=== PATIENT | female | born 1950 | race Caucasian/White ===

== ENCOUNTER 2018-10-13 09:56 | Outpatient (CLI) | payer MEDICARE, SELFPAY ==
[2018-10-13 13:26] LABS: ALT 32 U/L (12-78); AST 18 U/L (15-37); Albumin 3.7 g/dL (3.4-5.0); Alkaline Phosphatase 84 U/L (46-116); Anion Gap 8.3 mmol/L (3-11); BUN 18 mg/dL (7-18); Bilirubin, Total 0.4 mg/dL (0.2-1.0); CO2 29.7 mmol/L (21.0-32.0); CREATININE 0.87 mg/dL (0.55-1.02); Calcium 9.2 mg/dL (8.5-10.1); Chloride 104 mmol/L (98-107); Cholesterol 171 mg/dL (50-200); Glucose 134 mg/dL (70-100); HDL Cholesterol 57 mg/dL (40-60); Hemoglobin A1C 6.9 % (4.5-6.2); LDL CHOLESTEROL 97 mg/dL (<100); Potassium 4.6 mmol/L (3.5-5.1); Sodium 142 mmol/L (136-145); Total Protein 6.7 g/dL (6.4-8.2); Triglyceride 84 mg/dL (30-150)
== END 2018-10-13 10:16 ==
PROVIDERS: PCP Family Medicine; Visit Provider Family Medicine
CPT/HCPCS: 36415; 80053; 80061; 83721; 83036

== ENCOUNTER 2019-05-13 00:36 | Outpatient (CLI) | payer MEDICARE, SELFPAY ==
--- NOTE | 2019-05-13 07:30 | DI.MAMMO_ITS ---
SYMPTOMS/DIAGNOSIS: SCREENING MAMMOGRAMS: Mammograms were interpreted according to the usual protocol including computer analysis with CAD system, tomosynthesis and C view imaging. Comparison is made with prior examinations. No suspicious masses or microcalcifications are seen. There is no definite evidence of malignancy. IMPRESSION: Negative mammogram. Routine screening is recommended. Category 1, breast density B. MQSA ASSESSMENT OF FINDINGS: Negative. Category 1. Patient will receive a letter notifying them of these results. BI-RADS category B. There are scattered areas of fibroglandular density.
[2019-05-13 09:30] LABS: Hemoglobin A1C 6.5 % (4.5-6.2)
[2019-05-13 09:57] LABS: Iron 55 ug/dL (50-175)
[2019-05-13 10:00] LABS: COMMENT (LAB VIEW ONLY) 28.04 mg/dL; Microalb ug/mg Crea 13.9 ug/mg Cr
[2019-05-13 10:05] LABS: ALT 28 U/L (12-78); AST 13 U/L (15-37); Albumin 3.7 g/dL (3.4-5.0); Alkaline Phosphatase 87 U/L (46-116); Anion Gap 7.3 mmol/L (3-11); BUN 17 mg/dL (7-18); Bilirubin, Total 0.3 mg/dL (0.2-1.0); C-Reactive Protein 0.41 mg/dL (0.0-0.3); CO2 28.7 mmol/L (21.0-32.0); CREATININE 0.82 mg/dL (0.55-1.02); Calcium 9.1 mg/dL (8.5-10.1); Chloride 105 mmol/L (98-107); Glucose 178 mg/dL (70-100); Potassium 4.3 mmol/L (3.5-5.1); Sodium 141 mmol/L (136-145); Total Protein 7.3 g/dL (6.4-8.2); Uric Acid 5.9 mg/dL (2.6-6.0)
[2019-05-13 10:17] LABS: ESR 8 mm/hr (0-30)
[2019-05-13 10:29] LABS: Calculated LDL 115 mg/dL; Cholesterol 188 mg/dL (50-200); Ferritin 46 ng/mL (8-388); HDL Cholesterol 48 mg/dL (40-60); Triglyceride 125 mg/dL (30-150)
[2019-05-14 10:59] LABS: Rheumatoid Factor <8 IU/mL (<12.5)
== END 2019-05-13 00:56 ==
PROVIDERS: PCP Family Medicine; Visit Provider Family Medicine
DX: Z12.31 Encounter for screening mammogram for malignant neoplasm of breast (principal); E11.9 Type 2 diabetes mellitus without complications; M25.50 Pain in unspecified joint; C43.9 Malignant melanoma of skin, unspecified; I10 Essential (primary) hypertension; E78.5 Hyperlipidemia, unspecified; F32.9 Major depressive disorder, single episode, unspecified
CPT/HCPCS: 36415; 77063; 77067; 80053; 80061; 83721; 85652; 82043; 82570; 82607; 82728; 83036; 83540; 84550; 86140; 86431

== ENCOUNTER 2019-11-17 08:09 | Outpatient (CLI) | payer MEDICARE, SELFPAY ==
[2019-11-17 14:32] LABS: Hemoglobin A1C 6.7 % (3.8-5.6)
[2019-11-17 14:42] LABS: Microalb ug/mg Crea 19.2 ug/mg Cr
[2019-11-17 15:02] LABS: Iron 71 ug/dL (50-170)
[2019-11-17 15:31] LABS: ALT 35 U/L (14-59); AST 22 U/L (15-37); Albumin 4.1 g/dL (3.4-5.0); Alkaline Phosphatase 91 U/L (46-116); Anion Gap 8.5 mmol/L (3-11); BUN 14 mg/dL (7-18); Bilirubin, Total 0.5 mg/dL (0.2-1.0); CO2 27.5 mmol/L (21.0-32.0); CREATININE 0.92 mg/dL (0.55-1.02); Calcium 9.4 mg/dL (8.5-10.1); Calculated LDL 83 mg/dL (<100); Chloride 104 mmol/L (98-107); Cholesterol 164 mg/dL (<200); Ferritin 44 ng/mL (8-252); Glucose 111 mg/dL (74-106); HDL Cholesterol 59 mg/dL (40-60); Potassium 4.5 mmol/L (3.5-5.1); Sodium 140 mmol/L (136-145); Total Protein 7.6 g/dL (6.4-8.2); Triglyceride 110 mg/dL (<150); Vitamin B12 368 pg/mL (193-986)
== END 2019-11-17 08:29 ==
PROVIDERS: PCP Family Medicine; Visit Provider Family Medicine
DX: E11.69 Type 2 diabetes mellitus with other specified complication (principal); D64.9 Anemia, unspecified; G25.81 Restless legs syndrome
CPT/HCPCS: 36415; 80053; 80061; 82043; 82570; 82607; 82728; 83036; 83540

== ENCOUNTER 2020-03-01 01:12 | Outpatient (CLI) | payer MEDICARE, SELFPAY ==
[2020-03-01 14:13] LABS: Abs Immature Grans 0.02 k/cumm (0.0-0.09); Absolute Basophil Count 0.01 k/cumm (0.0-0.2); Absolute Eosinophil Count 0.32 k/cumm (0.0-0.7); Absolute Lymphocyte Count 1.83 k/cumm (1.2-3.4); Absolute Monocyte Count 0.52 k/cumm (0.11-0.7); Absolute Neutrophil Count 4.52 k/cumm (1.2-6.7); Basophils % 0.1; Eosinophils % 4.4; HCT 45.7 % (36.0-46.0); HGB 15.1 g/dL (12.0-15.5); Immature Grans % 0.3 %; Lymphocytes % 25.3; Mean Corpuscular Hemoglobin 31.7 pg (27.0-33.0); Mean Platelet Volume 9.5 fL (8.0-11.0); Monocytes % 7.2; Neutrophils % 62.7; Platelet Count 263 x1000/uL (130-400); RBC 4.76 m/cumm (4.00-5.20); RBC Distribution Width 14.1 % (11.7-14.6); White Blood Cell Count 7.22 k/cumm (4.4-10.8)
[2020-03-01 14:23] LABS: Hemoglobin A1C 6.3 % (3.8-5.6)
[2020-03-01 14:50] LABS: ESR 7 mm/hr (0-30)
[2020-03-01 15:04] LABS: ALT 34 U/L (14-59); AST 25 U/L (15-37); Alkaline Phosphatase 86 U/L (46-116); Anion Gap 6.8 mmol/L (3-11); BUN 9 mg/dL (7-18); Bilirubin, Total 0.5 mg/dL (0.2-1.0); CO2 30.2 mmol/L (21.0-32.0); CREATININE 0.97 mg/dL (0.55-1.02); Calcium 9.5 mg/dL (8.5-10.1); Chloride 103 mmol/L (98-107); Estimated GFR 57.11 (mL/min/1.73m2); Glucose 104 mg/dL (74-106); Potassium 4.4 mmol/L (3.5-5.1); Sodium 140 mmol/L (136-145); TSH 2.25 uIU/mL (0.36-3.74); Total Protein 7.2 g/dL (6.4-8.2)
== END 2020-03-01 01:32 ==
PROVIDERS: PCP Family Medicine; Visit Provider Family Medicine
DX: E11.9 Type 2 diabetes mellitus without complications (principal); R53.83 Other fatigue
CPT/HCPCS: 36415; 80053; 85652; 83036; 84443; 85025

== ENCOUNTER 2020-09-27 04:28 | Outpatient (CLI) | payer MEDICARE, OTHER, SELFPAY ==
[2020-09-27 16:03] LABS: COMMENT (LAB VIEW ONLY) 53.61 mg/dL; Microalb ug/mg Crea 22.4 ug/mg Cr
[2020-09-27 16:07] LABS: Hemoglobin A1C 6.1 % (<5.7)
[2020-09-27 16:50] LABS: ALT 30 U/L (14-59); AST 21 U/L (15-37); Alkaline Phosphatase 75 U/L (46-116); Anion Gap 4.6 mmol/L (3-11); BUN 16 mg/dL (7-18); Bilirubin, Total 0.5 mg/dL (0.2-1.0); CO2 31.4 mmol/L (21.0-32.0); CREATININE 1.02 mg/dL (0.55-1.02); Calcium 9.6 mg/dL (8.5-10.1); Chloride 103 mmol/L (98-107); Estimated GFR 53.89 (mL/min/1.73m2); Glucose 79 mg/dL (74-106); Potassium 4.1 mmol/L (3.5-5.1); Sodium 139 mmol/L (136-145); Total Protein 7.1 g/dL (6.4-8.2)
== END 2020-09-27 04:48 ==
PROVIDERS: PCP Family Medicine; Visit Provider Family Medicine
DX: E11.9 Type 2 diabetes mellitus without complications (principal)
CPT/HCPCS: 36415; 80053; 82043; 82570; 83036

== ENCOUNTER 2021-04-04 00:42 | Outpatient (CLI) | payer MEDICARE, SELFPAY ==
--- NOTE | 2021-04-04 08:15 | DI.MAMMO_ITS ---
Exam(s) MAMMO SCREENING EXAM: MAMMO SCREENING CLINICAL HISTORY: screening,Z12.39 TECHNIQUE: Bilateral full field digital CC and MLO mammographic images were obtained with 3D tomosyn thesis and utilizing computer aided detection (CAD). COMPARISON: Available for comparison. FINDINGS: Masses/Architectural Distortion: None seen. Microcalcifications: No suspicious pleomorphic-type are seen. Skin Thickening/Nipple Retraction: None. IMPRESSION: 1. No significant interval change with no specific features of malignancy noted. 2. Unless there is more urgent need, screening mammography is recommended, as per [employer] guidelines. BI-RADS Category 1 - Negative Breast Density - Category B - Scattered areas of fibroglandular density Breast density category C or D implies that the patient has dense breast tissue. Dense breast tissue is very common and is not abnormal but dense breast tissue can make it harder to find cancer on a ma mmogram. Also, dense breast tissue may increase their breast cancer risk. This information about the result of the mammogram report was provided to the patient to raise their awareness. Use this report when you speak with the patient about their risks for breast cancer, which includes their family hist ory. At that time, you may recommend for more screening tests (Ultrasound or MRI) as they might be us eful based on their risk. A negative radiographic report should not delay biopsy if a dominant or clinically suspicious mass is present. Up to ten percent of cancers are not identified on mammography. A negative report may reinforce clinical impression. Adenosis and dense breasts may obscure an underlying neoplasm. False positive reports average 6 to 10%. Patient will receive a letter notifying them of these results.
== END 2021-04-04 01:02 ==
PROVIDERS: PCP Family Medicine; Visit Provider Family Medicine
DX: Z12.31 Encounter for screening mammogram for malignant neoplasm of breast (principal); R92.8 Other abnormal and inconclusive findings on diagnostic imaging of breast
CPT/HCPCS: 77063; 77067

== ENCOUNTER 2021-04-11 11:55 | Outpatient (REF) | payer MEDICARE, SELFPAY ==
[2021-04-12 14:46] LABS: COVID-19 RT-PCR UVMMC Result Negative (Negative)
== END 2021-04-11 11:56 | disposition home or self-care (01) ==
LOC: LBN 11:55
PROVIDERS: PCP Family Medicine; Visit Provider Family Medicine
DX: Z20.822 Contact with and (suspected) exposure to COVID-19 (principal); J06.9 Acute upper respiratory infection, unspecified
CPT/HCPCS: U0003; U0005

== ENCOUNTER 2021-05-01 07:06 | Inpatient (IN) | payer MEDICARE, SELFPAY ==
[2021-05-01] VITALS (255 sets, daily range): BP systolic 41–132; BP diastolic 25–114; PULSE 79–111; RESP 1–36; TEMP 35.8–37.6; O2SAT 4–100
--- NOTE | 2021-05-01 07:00 | RT.EKG_ITS ---
APPROVED REPORT Exam: Resting ECG Reason for Exam: sob Patient Location: E HR:97 bpm ECG Measurements Heart Rate 97 AXIS CO 135 P 69 QRSd 82 QRS 82 QT 324 T 26 QTc 413 Conclusion Sinus rhythm...normal P axis, V-rate 60- 99 sinus rhythm at 97, normal axis, no STEMI, nondiagnostic EKG
[2021-05-01] MEDS: Normal Saline 1,000 ML 1000 ML IV ×2 (07:37→09:06)
--- NOTE | 2021-05-01 08:05 | ED.GENADUL_ITS ---
Discharge Plan Disposition Condition: Fair Discharge Details Chief Complaint: RespSymp Admit Date/Time: 05/01/21 09:48 Admit Provider: John Buck Attending Provider: John Buck Primary Care Provider: Bharati Cooper ED Provider: Marine Lepe Discharge Instructions Activity:: Activity as Tolerated Equipment/Supplies:: No Equipment Needed Diet:: As Tolerated Discharge Orders Discharge Orders: Discharge Order (Routine); Ordered 05/05/21 Ordered By: Hannah Zamora Discharge Data Discharge Date/Time-TO BE ENTERED AT DEPARTURE: 05/01/21 11:34 Medical Decision Making Jerica Quinteros is a 71 y/o woman with history of sleep apnea chb-tjseynn-kgjrcyvfi diabetes, hyperlipidemia, hypertension, psoriasis on immunosuppressive who presented to emergency department with shortness of breath, lightheadedness. On exam patient appears fatigued, no extremitas. Slight wheeze bilaterally on auscultation. No abdominal tenderness palpation. Mild symmetric lower extremity edema. Initial blood pressure with SBP in the 70s. Patient alert without signs of poor perfusion. Concern for pneumonia, Covid, pulmonary embolism, CHF, sepsis other. Doubt acute coronary syndrome. Bedside ultrasound shows trace pericardial effusion, IVC compressible during respiration. Exam/history at this time is not consistent with acute aortic pathology, meningitis, acute emergent intra-abdominal pathology. EKG is nondiagnostic. Plan for IV placement x2, telemetry, IV fluid hydration, scr eening labs, chest x-ray, UA. Will monitor and reassess. Blood pressure improving with IV fluid, SBP 80s/90s. Labs reviewed, hemoglobin 7.2 without known history of anemia. Lactate 2.9. Cefepime initiated for presumed pulmonary infection rectal exam performed. Hemoccult was positive, there is no gross blood or melena, rectal exam otherwise normal. Chest x-ray shows multiple nodules concerning for metastatic disease. Patient states that she was diagnosed with melanoma on the foot 3 years ago, this was surgically removed, no chemotherapy or radiation at that time. Patient also reports that her mother, father, and older sister were all diagnosed with colon cancer in the past. Plan to continue IV fluid. 1 unit PRBCs ordered. Patient reports that she feels somewhat improved with fluids. No clinical evidence of CHF at this point. Patient discussed with hospitalist who will admit. Awaiting administration of RBCs for MedSurg versus ICU placement. Patient now with blood pressure 101/54. Patient will need CT chest/abdomen/pelvis, possible CT head for further neoplastic disease evaluation. 20 cc of urine obtained on straight cath, creatinine 1.5 which is increased from patient's baseline. Will hold CT scans at this time as no emergent need, awaiting fluid resuscitation and stabilization of blood pressure. Patient not tachycardic, no chest pain, shortness of breath feels improved, blood pressure improving with fluid, no apparent RV strain on bedside ultrasound, doubt segmental pulmonary embolism at this time. Pt to be admitted to ICU for continued borderline BP. No worsening of symptoms. Clinical impression: Anemia, hypertension Disposition: [facility] inpatient Medical Records Medical records reviewed: Yes I reviewed the patient's medical records. Imaging Data Radiologic Study: Attestation: I personally reviewed and interpreted this imaging study as follows: Radiologist's impression: EXAM: XR PORTABLE CHEST AP CLINICAL HISTORY: cough. TECHNIQUE: 2D digital imaging was performed. COMPARISON: No exams were available for comparison FINDINGS: Heart size upper normal. There are multiple noncalcified and non cavitated nodules throughout both lung klein, largest of these being in the right hilum region measuring 5.5 by 4.5 cm. The largest in the opposite-left lung measures approximately 4 x 4 cm. No associated pleural effusions evident. Fixation plate noted on the superior aspect of the left clavicle. No significant osseous lesions identified. IMPRESSION: There are multiple noncalcified non cavitated nodules throughout both lung klein. There are no associated pleural effusions. First consideration is for neoplasm-metastatic disease and correlation with this patient's past medical history is recommended. Other considerations are for infectious/inflammatory. Lab Data Lab results reviewed: Yes I reviewed the patient's lab results. ECG Data Attestation: I personally reviewed and interpreted this ECG (s) as follows: Interpretation: EKG shows sinus rhythm at 97, normal axis, no STEMI, nondiagnostic EKG HPI General Mode of arrival: ambulatory . Date/Time Provider Initiated Documentation: 05/01/21 07:32 . Limitations to Documentation: no limitations . Information obtained by: patient, RN notes reviewed and old records reviewed . HPI Narrative: Jerica Quinteros is a 71-year-old woman with a history of asthma, azv-lwylsyi-edqnzzshw diabetes, hyperlipidemia, hypertension, sleep apnea, psoriasis presenting to the emergency department with chief complaint shortness of breath. Patient reports that over the past 2 weeks she has begun to feel generally unwell. She reports that she has shortness of breath with exertion but not at rest. She has had dry cough over the past 3 weeks as well. She reports diarrhea in the past few days, no bloody, dark, or tarry stool. Patient reports that she has had lightheadedness worse with standing over the past 3 weeks as well. She states that she has had mild pain behind her eyes since that time., Also with blurry vision that has not been no ongoing for 6 weeks or so. Patient reports that she has no new visual changes. She denies any other pain. Denies fever, vomiting, numbness, weakness, rash. She reports that in the past few weeks she has noticed mild swelling her lower legs. Patient states that she has had somewhat decreased p.o. intake over the past few months, but has been drinking plenty of fluids. Per record review, patient was started on apremilast for her psoriasis recently (noted in clinic note 04/19/2021). Related Data Home Medications Medication Instructions Recorded Confirmed aspirin [Aspirin Low-Strength] 1 tab PO DAILY tab 02/10/13 05/01/21 Blood Glucose Test #100 strip 04/13/15 05/01/21 nystatin (bulk) 1 ea MISCELLANEOUS DAILY #60 gm 03/23/16 05/01/21 calcium carb-vit D3-minerals 600 1 tab PO DAILY tab 04/06/19 05/01/21 mg calcium-400 unit tablet fluticasone propionate 50 1 spray NS DAILY PRN #1 gm 04/06/19 05/01/21 mcg/actuation nasal spray,suspension docusate sodium 100 mg capsule 100 mg PO DAILY #90 cap 04/20/19 05/01/21 nystatin 100,000 unit/gram topical 1 applic TP BID PRN #60 gm 04/30/19 05/01/21 powder losartan 100 mg tablet 100 mg PO DAILY #90 tab 11/18/19 05/01/21 albuterol sulfate 90 mcg/actuation 1 - 2 puff IH QID PRN #18 gm 05/04/20 05/01/21 aerosol inhaler ropinirole 1 mg tablet 1 - 2 mg PO HS #90 tab-cap 05/04/20 05/01/21 fluticasone furoate 100 1 inh IH DAILY #30 each 06/24/20 05/01/21 mcg/actuation blister powder for inhalation metformin 1,000 mg tablet 1,000 mg PO DAILY #90 tab-cap 11/18/20 05/01/21 apremilast 30 mg tablet 30 mg PO BID 04/03/21 05/01/21 atorvastatin 80 mg tablet 80 mg PO DAILY #90 tab-cap 04/03/21 05/01/21 escitalopram oxalate 20 mg tablet 40 mg PO DAILY #180 tab 04/03/21 05/01/21 triamcinolone acetonide 0.1 % 1 applic TOPICAL BID 04/03/21 05/01/21 topical cream bupropion HCl 150 mg tablet,12 hr 150 - 300 mg PO DIRECTED #270 04/04/21 05/01/21 sustained-release tab lidocaine HCl 5 ml NEB DIRECTED PRN #0 ml 05/04/21 Previous Rx's Medication Instructions Recorded docusate sodium 100 mg capsule 100 mg PO DAILY #90 cap 04/20/19 nystatin 100,000 unit/gram topical 1 applic TP BID PRN #60 gm 04/30/19 powder losartan 100 mg tablet 100 mg PO DAILY #90 tab 11/18/19 albuterol sulfate 90 mcg/actuation 1 - 2 puff IH QID PRN #18 gm 05/04/20 aerosol inhaler ropinirole 1 mg tablet 1 - 2 mg PO HS #90 tab-cap 05/04/20 fluticasone furoate 100 1 inh IH DAILY #30 each 06/24/20 mcg/actuation blister powder for inhalation metformin 1,000 mg tablet 1,000 mg PO DAILY #90 tab-cap 11/18/20 atorvastatin 80 mg tablet 80 mg PO DAILY #90 tab-cap 04/03/21 escitalopram oxalate 20 mg tablet 40 mg PO DAILY #180 tab 04/03/21 bupropion HCl 150 mg tablet,12 hr 150 - 300 mg PO DIRECTED #270 04/04/21 sustained-release tab lidocaine HCl 5 ml NEB DIRECTED PRN #0 ml 05/04/21 Allergies Allergy/AdvReac Type Severity Reaction Status Date / Time cortisone Allergy Intermediate burning Unverified 05/01/21 07:10 rash ketoconazole Allergy Intermediate SKIN RASH Unverified 05/01/21 07:10 Sulfa (Sulfonamide Allergy Intermediate RASH Unverified 05/01/21 07:10 Antibiotics) dextromethorphan Allergy Unknown HIVES Unverified 05/01/21 07:10 guaifenesin Allergy Unknown HIVES Unverified 05/01/21 07:10 povidone-iodine Allergy Unknown RED SKIN; Unverified 05/01/21 07:10 REYES chlorhexidine AdvReac Unknown DOES NOT Unverified 05/01/21 07:10 KNOW FOR SURE General Stated Complaint: RespSymp ANNIA: 2 Review of Systems Narrative: Constitutional: denies fevers Eyes: denies eye pain report blurry vision over the past 6 weeks or so, reports pain behind both of her eyes for the past 3 to 4 weeks unchanged ENT: denies ear pain, dental pain, sore throat Cardiovascular: denies chest pain, reports mild lower extremity edema Respiratory: Reports SOB, cough GI: denies abdominal pain, vomiting, reports diarrhea : denies flank pain MSK: denies back pain, neck pain, arthralgias, myalgias Skin: denies rash Neuro: denies headaches, numbness, weakness [facility] Medical History (Updated 05/05/21 @ 19:59 by Alina Stephenson MD) Asthma Depression Diabetes (~2001) type 2 Encounter for hospice care discussion Goals of care, counseling/discussion History of colonic polyps Hospice care patient Hx of adenomatous polyp of colon (~03/2012) Hyperlipidemia Hypertension Melanoma (~03/2019) excised from sole of right foot; performed at [facility] [place]. Stage T3a- no adjuvant therapy Obesity Palliative care patient Sleep apnea wears CPAP mask Surgical History (Updated 05/04/21 @ 22:20 by Alina Stephenson MD) Colonoscopy - MAC (~04/04/12) 04/04/2012 (two adenomas removed one from transverse and one from sigmoid colon); subsequent colonoscopy 04/25/2015 showed no polyps History of excision of lesion Family History (Updated 05/05/21 @ 07:49 by Alina Stephenson MD) Mother Alcohol abuse in remission Heart disease Hyperlipidemia Melanoma Father Diabetes Alcohol abuse Hyperlipidemia Colon cancer Melanoma Sister , age 61 from colon cancer Colon cancer FAMILY HISTORY Diabetes Aortic aneurysm Depression Heart disease Suicide Brother Suicide Brother Suicide Brother Suicide Daughter No problems noted. Daughter No problems noted. Son No problems noted. Other Murder Social History (Updated 05/05/21 @ 07:45 by Alina Stephenson MD) Smoking/Tobacco Use Status: Former Tobacco Use Quit Date: 10/21/18 Tobacco: How many years used: 50 Smoking risk assessment performed?: Yes Alcohol Intake: current Alcohol Intake frequency: a few times a week Alcohol type: beer Drug use: Never Substance use type: does not use Caregiver/Support person: Yes (significant other, Rojas and daughter Samia) Household members: significant other Housing: house Number of Children: 3 number of grandchildren: 4 Communication Needs: Corrective Lenses Education Level: high school Do you need help understanding health information?: Often 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; 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 Pets and animals: Yes Pets and animals: cat(s) Current gender identity: female and decline to answer What is your relationship status?: living with partner How often do you talk on the phone with friends or family?: three or more times per week How often do you get together with friends or relatives?: twice per week Panel score (0-1 are the most socially isolated patients): 2 What type of physical activity do you participate in: walking and sedentary lifestyle Duration: 15-30 minutes/day Briseyda/Anabaptist: No preference Special briseyda needs: No Working smoke detector in home: Yes Fire extinguisher in home: Yes Do you feel safe at home: Yes Do you feel safe in your relationship?: Yes Additional Social history: Lives with partner, Rojas. He is very overwhelmed by her diagnosis of metastatic cancer. Daughter Samia on extended FMLA as of this diagnosis. House is currently undergoing rehab. No running water. Renovations much more extensive than planned. House cluttered due to renovations, but family can reconfigure rooms for Jerica to return home with hospital bed in place. Jerica's mother, age 92, has already lost 4 children. Samia to inform her of Jerica's diagnosis prior to Jerica's discharge. Exam Narrative Exam Narrative: Constitutional: Fatigued appearing, no extremitas, pleasant, conversing normally HENT: head atraumatic/normocephalic/normal inspection, mucous membranes dry Eyes: conjunctiva normal, sclera normal, pupils 3mm b/l Neck: no stridor, normal ROM, trachea midline Chest: normal inspection Resp: normal work of breathing, scant expiratory wheeze bilaterally on auscultation, no rhonchi or rails Cardio: normal rate, normal rhythm, no murmur appreciated GI: abdomen soft, non-tender, non-distended Back: normal inspection, no rash Skin: warm, dry, normal color, no rash Neuro: alert, not altered, grossly non-focal, normal tone Ext: Trace edema bilateral lower extremities, no posterior calf tenderness to palpation Psych: normal mood, normal affect, normal behavior Course Vital Signs Vital signs: Vital Signs Temperature 36.2 C L 05/01/21 07:14 Pulse 99 H 05/01/21 07:14 Respiratory Rate 26 H 05/01/21 07:14 Blood Pressure 79/48 L 05/01/21 07:14 Pulse Oximetry 96 05/01/21 07:14 Temperature 36.2 C L 05/01/21 07:14 Temperature Source Temporal Artery Scan 05/01/21 07:14 Pulse 94 H 05/01/21 07:31 Pulse 95 H 05/01/21 07:31 Respiratory Rate 23 05/01/21 07:31 Respiratory Effort 05/01/21 07:23 Respiratory Depth Normal 05/01/21 07:23 Blood Pressure 76/43 L 05/01/21 07:31 Blood Pressure Mean 50 05/01/21 07:31 Blood Pressure Position Sitting 05/01/21 07:14 Pulse Oximetry 100 05/01/21 07:31 Oxygen Delivery Method Room Air 05/01/21 07:14 Oxygen Flow Rate 0 05/01/21 07:14 Lab/Test Results Lab/Test Results: 05/01/21 07:50 Blood Blood Culture - Pending 05/01/21 07:50 Blood Blood Culture - Pending Critical Care Time Critical Care Time Critical Care Time: Yes Total Critical Care Time: 35 Attestation: I have spent 35 minutes of critical care time with the critically ill patient including interpretation of lab, frequent bedside reassessments, discussions with patient and family.
[2021-05-01 08:06] LABS: Abs Immature Grans 0.25 10^3/uL (0.0-0.06); Absolute Lymphocyte Count 1.18 10^3/uL (1.2-3.4); HCT 24.9 % (36.0-46.0); HGB 7.2 g/dL (11.2-15.7); MCH 24.2 pg (27.0-33.0); MCHC 28.9 % (32.0-36.0); MCV 83.8 fL (80-95); MPV 9.5 fL (8.0-11.0); Platelet Count 517 10^3/uL (130-400); RBC 2.97 10^6/uL (3.93-5.22); RDW 17.2 % (11.7-14.6); RDW-SD 53.1 fL; WBC 10.68 10^3/uL (4.4-10.8)
[2021-05-01 08:14] LABS: Source Nasal/Nares
[2021-05-01 08:14] LABS: Lactate 2.9 mmol/L (0.6-1.4)
--- NOTE | 2021-05-01 08:22 | DI.RAD_ITS ---
Exam(s) XR PORTABLE CHEST AP EXAM: XR PORTABLE CHEST AP CLINICAL HISTORY: cough. TECHNIQUE: 2D digital imaging was performed. COMPARISON: No exams were available for comparison FINDINGS: Heart size upper normal. There are multiple noncalcified and non cavitated nodules throughout both lung klein, largest of the se being in the right hilum region measuring 5.5 by 4.5 cm. The largest in the opposite-left lung me asures approximately 4 x 4 cm. No associated pleural effusions evident. Fixation plate noted on the superior aspect of the left clavicle. No significant osseous lesions kecia ntified. IMPRESSION: There are multiple noncalcified non cavitated nodules throughout both lung klein. There are no asso ciated pleural effusions. First consideration is for neoplasm-metastatic disease and correlation wit h this patient's past medical history is recommended. Other considerations are for infectious/inflammatory. DATA REPOSITORY: RADIATION DOSE DELIVERED: All CT scans at this facility use at least one of these dose optimization techniques: automated exposure control; mA and/or kV adjustment per patient size (includes targeted e xams where dose is matched to clinical indication); or iterative reconstruction.
[2021-05-01 08:26] LABS: Absolute Eosinophil Count 0.11 10^3/uL (0.0-0.7); Absolute Monocyte Count 0.64 10^3/uL (0.1-0.8); Absolute Neutrophil Count 8.44 10^3/uL (1.2-6.7); Bands % 11; Metamyelocytes % 1; Myelocytes % 2; Nucleated RBC 1 %
[2021-05-01 08:27] LABS: Anisocytosis 2+; Diff Comment Manual Differential; Hypochromasia 2+; Polychromasia Present
[2021-05-01 08:28] LABS: Poikilocytes 1+
[2021-05-01 08:34] LABS: ALT 26 U/L (14-59); AST 25 U/L (15-37); Alkaline Phosphatase 78 U/L (46-116); Anion Gap 15.4 mmol/L (3-11); BUN 25 mg/dL (7-18); Bilirubin, Total 0.3 mg/dL (0.2-1.0); CO2 21.6 mmol/L (21.0-32.0); CREATININE 1.5 mg/dL (0.55-1.02); Calcium 8.9 mg/dL (8.5-10.1); Chloride 102 mmol/L (98-107); Estimated GFR 34.43 (mL/min/1.73m2); Glucose 193 mg/dL (74-106); Magnesium 1.3 mg/dL (1.8-2.4); Potassium 4.6 mmol/L (3.5-5.1); Sodium 139 mmol/L (136-145); TSH (W/Ref FT4) 3.92 uIU/mL (0.36-3.74); Troponin I < 0.05 ng/mL (<0.06)
[2021-05-01 08:35] LABS: NT-proBNP 1198 pg/mL (<300)
[2021-05-01] MEDS: Albuterol/Ipratropium 3 ML UPD VIAL UPD ×2 (08:35→19:20)
[2021-05-01 08:36] LABS: INR 1.1 (0.9-1.1); Prothrombin Time 11.2 sec (9.3-11.0)
[2021-05-01] MEDS: CEFEPIME 2 GM in Normal Saline 100 ML IVPB (08:40)
[2021-05-01 08:49] LABS: FREE T4 1.35 ng/dL (0.76-1.46)
[2021-05-01 09:00] LABS: D-Dimer 2230 ng/mlFEU (<500)
[2021-05-01 09:06] LABS: COVID-19 PCR Negative (Negative)
[2021-05-01 09:28] LABS: Bilirubin Small (Negative); Blood Negative (Negative); Clarity Clear (Clear); Glucose Negative (Negative); Ketones Trace mg/dL (Negative); Leukocyte Esterase Negative (Negative); Nitrite Negative (Negative); Urobilinogen 0.2 EU/dL (Up TO 0.2); pH 5.5 (5-8)
[2021-05-01 09:29] LABS: Epithelial Cells Few HPF (Negative); Other Cells Few Renal (Negative); WBC 0-2 HPF (0-5)
[2021-05-01 09:30] LABS: Bacteria Moderate HPF (Negative); C & S Indicated? No; Casts 10-20 Hyaline LPF (Negative); Crystals Negative HPF (Negative); Mucus Heavy (Negative)
[2021-05-01] MEDS: MAGNESIUM SULFATE 1 GM/100 ML BAG IVPB (09:35)
--- NOTE | 2021-05-01 10:31 | HPE_ITS ---
Date of service: 05/01/21 Time of Service: 10:31 Assessment and Plan Assessment and plan (1) Lung nodules: Status: Acute Assessment and plan: Appears to be metastatic nodules. With her history of colon tubular adenomas as well as her recent history of melanoma these could be metastatic lesions either from GI source or from her melanoma. Also the patient is a former smoker who quit in the last couple years. These could also be lung carcinoma. Patient will receive premedication for IV contrast and then undergo CT scan of the chest and abdomen pelvis tomorrow. Patient be resuscitated with blood transfusions tonight (2) Acute blood loss anemia: Status: Acute Assessment and plan: Patient be placed on IV Protonix for GI protection and transfuse packed red cells. Goal is for hemoglobin greater than 8 g. (3) Cough: Status: Acute Assessment and plan: Cough is most likely secondary to multiple bilateral lung nodules. I started on Tessalon Perles and will also add some Tussionex to suppress her cough. (4) Dyspnea: Status: Acute Assessment and plan: Secondary to bilateral lung nodules Qualifiers: Dyspnea type: shortness of breath Qualified Code(s): R06.02 - Shortness of breath (5) Depressive disorder: Status: Chronic Assessment and plan: Continue her current home antidepressant medications which include Wellbutrin. However I discussed the dosing with the pharmacist. We may need to reduce her dose from her current level of 450 mg a day down to 150 mg a day based on her renal function (6) Asthma: Status: Chronic Assessment and plan: I do not feel that her cough is secondary to her asthma but rather from her lung nodules. She will be kept on her maintenance inhalers and also be given DuoNeb treatments as needed. She will be receiving prednisone 50 mg this afternoon and then again tonight and again in the morning in preparation for her IV contrast study. Qualifiers: Asthma complication type: uncomplicated Asthma severity: mild (7) Diabetes type 2, controlled: Status: Chronic Assessment and plan: Monitor blood sugars before meals and at bedtime and cover with sliding scale NovoLog. May need to add some NPH with her prednisone Qualifiers: Diabetes mellitus complication detail: with polyneuropathy Diabetes mellitus complication status: with neurologic complications Diabetes mellitus intermodal dispatcher insulin use: without prison use Qualified Code(s): E11.42 - Type 2 diabetes mellitus with diabetic polyneuropathy (8) TIMI (obstructive sleep apnea): Status: Chronic (9) History of colonic polyps: Status: Chronic Assessment and plan: Last colonoscopy was 6 years ago and was negative for polyps although originally she had 2 tubular adenomas that were removed in 2011. Given that she has Hemoccult positive stools and anemia she will need a colonoscopy this admission as part of her work-up for her lung nodules and anemia. Case was discussed with Dr. Ronquillo who consulted on the case and will pass along information to Dr. Domingo in the morning History of Present Illness History of Present Illness Chief Complaint: Cough and shortness of breath x3 weeks Narrative: 71-year-old white female with a past medical history of asthma, depression, type 2 diabetes mellitus, adenomatous colon polyps, hypertension, hyperlipidemia, melanoma, obesity, TIMI for which he uses CPAP, psoriasis and former smoker who presents emergency department with 3-week hi story of nonproductive cough and shortness of breath not associated with any chest pain or fever or rigors. However since February she has had a 25 to 30 pound weight loss along with decreased appetite. In the emergency department she underwent routine work-up including chest 2 Views and lab work. Chest x-ray showed multiple noncalcified noncavitated lung nodules in both lungs with no pleural effusion. Largest of these nodules is in the right hilum measuring 5.5 x 4.5 cm. The largest in the left lung measured 4 x 4 cm. She was also found to be anemic with a hemoglobin of 7.2 g with an increased RDW of 17 and normal white count and normal platelet count. Patient admits for the last 2 weeks she has had black semiformed stools having diarrhea several bowel movements a day. She also has some left lower quadrant abdominal pain. No hematochezia no hematemesis. She has a strong family history of colon cancer including her father and her sister both of which of colon cancer. Patient herself was diagnosed with adenomatous polyps of her transverse and sigmoid colon during a colonoscopy April 04, 2012 @ [facility], Dr. Edgard Covington. Follow up c-scope was done 04/25/[address] Qing Pressley and showed no colon polyps. She also has diverticulosis. Rectal exam in the ER revealed heme positive stools. Patient was typed and cross matched and given 1 unit of PRBC after initial fluid resusci tation w/ 2 L normal saline. Patient also was given Cefipime presumptively for pneumonia although patient has been afebrile and w/out leukocytosis. Patient was hypotensive on admission w/ BP 79/48 to 90/47 but since the 2 liters of saline and 1 unit PRBC her BP has been 102-105/47 -63. HR has been in the 90's SR. She denies any chest pain. She has paroxysms of coughing but no sputum production. CT of the chest and abdomen were ordered by the ER but d/t her hx of allergy to povidone/iodine (topical allergy) radiology would not perform w/out undergoing contrast allergy protocol of steroids and benadryl. Patient is admitted to ICU for treatment of blood loss hypotension, GI bleeding and workup of lung nodules/probable lung mets. She needs whole body scanning including CT chest, abdomen and pelvis w/ oral and iv contrast to look for source of primary and surgical consultation regarding her GI bleeding and hx of tubular adenomas. Review of Systems Constitutional Constitutional: Denies excessive sweating, Reports fatigue, Denies fever(s), Reports lethargy, Reports malaise, Denies night sweats and Reports poor appetite Eyes Eyes: Reports blurry vision ENT Ears, Nose, Mouth, and Throat: Reports system reviewed and no additional complaints, except as documented and Reports dizziness Cardiovascular Cardiovascular: Reports system reviewed and no additional complaints, except as documented, Denies syncope, Reports dyspnea and Reports dyspnea on exertion Respiratory Respiratory: Reports cough, Denies hemoptysis, Reports dyspnea and Reports dyspnea on exertion Gastrointestinal Gastrointestinal: Reports as per HPI, Reports melena, Reports change in bowel habits, Denies coffee ground emesis, Reports diarrhea and Denies vomiting Genitourinary Genitourinary: Reports system reviewed and no additional complaints, except as documented Musculoskeletal Musculoskeletal: Reports system reviewed and no additional complaints, except as documented Integumentary/Breasts Skin/Breast: Reports system reviewed and no additional complaints, except as documented Neurologic Neurologic: Reports dizziness, Denies syncope and Reports paresthesias (both feet) Psychiatric Psychiatric: Reports system reviewed and no additional complaints, except as documented Endocrine Endocrine: Denies excessive sweating and Reports fatigue Hematologic/Lymphatic Hematologic/Lymphatic: Reports system reviewed and no additional complaints, except as documented and Denies lymphadenopathy Allergic/Immunologic Allergic/Immunologic: Reports system reviewed and no additional complaints, except as documented PENDING SALE TO [facility] Medical History (Updated 05/01/21 @ 17:03 by John Buck) Asthma Depression Diabetes (~2001) type 2 History of colonic polyps Hx of adenomatous polyp of colon (~03/2012) Hyperlipidemia Hypertension Melanoma (~03/2019) excised from sole of right foot; [place] [facility] [place] Obesity Sleep apnea wears CPAP mask Surgical History Colonoscopy - MAC (~04/04/12) 04/04/2012 (two adenomas removed one from transverse and one from sigmoid colon); subsequent colonoscopy 04/25/2015 showed no polyps Family History (Updated 05/01/21 @ 15:03 by John Buck) Mother Alcohol abuse Heart disease Hyperlipidemia Father Diabetes Alcohol abuse Personal history of malignant neoplasm colon cancer Hyperlipidemia Sister Personal history of malignant neoplasm colon cancer FAMILY HISTORY Diabetes Personal history of malignant neoplasm COLON Aortic aneurysm Depression Heart disease Suicide Brother Murder Brother Murder Social History (Updated 05/01/21 @ 15:04 by John Buck) Smoking/Tobacco Use Status: Former Tobacco Use Quit Date: 10/21/18 Tobacco: How many years used: 30 Smoking risk assessment performed?: Yes Alcohol Intake: current Alcohol Intake frequency: a few times a week Alcohol type: beer Drug use: Never Substance use type: does not use current occupation: [employer] Pets and animals: Yes Pets and animals: cat(s) Current gender identity: decline to answer What is your relationship status?: refused to answer How often do you talk on the phone with friends or family?: decline to answer How often do you get together with friends or relatives?: decline to answer How often do you attend nondenominational or mandaeism services?: decline to answer Do you belong to any clubs or organized social groups?: decline to answer Panel score (0-1 are the most socially isolated patients): 0 What type of physical activity do you participate in: decline to answer Duration: decline to answer Frequency: decline to answer Briseyda/Restoration: No preference Special briseyda needs: No Do you feel safe in your relationship?: Yes Meds Allergies and Home Medications Allergies Allergy/AdvReac Type Severity Reaction Status Date / Time cortisone Allergy Intermediate burning Unverified 05/01/21 07:10 rash ketoconazole Allergy Intermediate SKIN RASH Unverified 05/01/21 07:10 Sulfa (Sulfonamide Allergy Intermediate RASH Unverified 05/01/21 07:10 Antibiotics) dextromethorphan Allergy Unknown HIVES Unverified 05/01/21 07:10 guaifenesin Allergy Unknown HIVES Unverified 05/01/21 07:10 povidone-iodine Allergy Unknown RED SKIN; Unverified 05/01/21 07:10 REYES chlorhexidine AdvReac Unknown DOES NOT Unverified 05/01/21 07:10 KNOW FOR SURE Home Medications Medication Instructions Recorded Confirmed Type aspirin [Aspirin Low-Strength] 1 tab PO DAILY tab 02/10/13 05/01/21 History Blood Glucose Test #100 strip 04/13/15 05/01/21 History nystatin (bulk) 1 ea MISCELLANEOUS DAILY #60 gm 03/23/16 05/01/21 History calcium carb-vit D3-minerals 600 1 tab PO DAILY tab 04/06/19 05/01/21 History mg calcium-400 unit tablet fluticasone propionate 50 1 spray NS DAILY PRN #1 gm 04/06/19 05/01/21 History mcg/actuation nasal spray,suspension docusate sodium 100 mg capsule 100 mg PO DAILY #90 cap 04/20/19 05/01/21 Rx nystatin 100,000 unit/gram topical 1 applic TP BID PRN #60 gm 04/30/19 05/01/21 Rx powder losartan 100 mg tablet 100 mg PO DAILY #90 tab 11/18/19 05/01/21 Rx albuterol sulfate 90 mcg/actuation 1 - 2 puff IH QID PRN #18 gm 05/04/20 05/01/21 Rx aerosol inhaler ropinirole 1 mg tablet 1 - 2 mg PO HS #90 tab-cap 05/04/20 05/01/21 Rx fluticasone furoate 100 1 inh IH DAILY #30 each 06/24/20 05/01/21 Rx mcg/actuation blister powder for inhalation metformin 1,000 mg tablet 1,000 mg PO DAILY #90 tab-cap 11/18/20 05/01/21 Rx apremilast 30 mg tablet 30 mg PO BID 04/03/21 05/01/21 History atorvastatin 80 mg tablet 80 mg PO DAILY #90 tab-cap 04/03/21 05/01/21 Rx escitalopram oxalate 20 mg tablet 40 mg PO DAILY #180 tab 04/03/21 05/01/21 Rx triamcinolone acetonide 0.1 % 1 applic TOPICAL BID 04/03/21 05/01/21 History topical cream bupropion HCl 150 mg tablet,12 hr 150 - 300 mg PO DIRECTED #270 04/04/21 05/01/21 Rx sustained-release tab Exam Narrative Exam Narrative: Pale elderly white female, red head who is diaphoretic but alert and oriented x 3; has dry paroxysm of coughing HEENT remarkable for pale conjunctiva and pale oral mucosa Neck: supple, nontender, no JVD, no bruits, normal carotid pulses; no lymphadenopathy over cervical or posterior cervical or supraclavicular chain Lungs: course breath sounds; no wheezes; prolonged expiratory phase, no dullness to percussion Heart: mildly tachycardic w/ soft early systolic murmur over apex; no thrill or heave or gallops; PMI is non-displaced Abdomen: normal bowel sounds, soft, mild LLQ tenderness; no rebound tenderness or guarding; no palpable masses and no bruits Extremities: palpable pedal pulses; no cyanosis or edema; no calf tenderness or swelling Neuro exam w/out CN deficits but formal VA not done other than gross vision; sensation intact to light touch; normal ROM and strength Results Labs Result diagrams: 05/01/21 11:00 05/01/21 07:22 Labs: Laboratory Results - last 24 hr 05/01/21 05/01/21 05/01/21 07:22 07:22 07:22 WBC 10.68 RBC 2.97 L Hgb 7.2 L Hct 24.9 L MCV 83.8 MCH 24.2 L MCHC 28.9 L RDW 17.2 H Plt Count 517 H MPV 9.5 Immature Gran % See Differential Neutrophils % 68.0 Band Neutrophils % 11 Lymphocytes % 11.0 Monocytes % 6.0 Eosinophils % 1.0 Basophils % 0.0 Metamyelocytes % 1 Myelocytes % 2 Nucleated RBC % 1 Absolute Neutrophils 8.44 H Absolute Lymphocytes 1.18 L Absolute Monocytes 0.64 Absolute Eosinophils 0.11 Absolute Basophils 0.00 RBC Morphology See Below Polychromasia Present Hypochromasia 2+ Poikilocytosis 1+ Anisocytosis 2+ PT INR D-Dimer VBG Lactate Sodium 139 Potassium 4.6 Chloride 102 Carbon Dioxide 21.6 Anion Gap 15.4 H BUN 25 H Creatinine 1.5 H Estimated GFR/1.73 m2 34.43 Glucose 193 H Calcium 8.9 Magnesium 1.3 L Total Bilirubin 0.3 AST 25 ALT 26 Alkaline Phosphatase 78 Troponin I < 0.05 NT-Pro-B Natriuret Pep 1198 H Total Protein 6.0 L Albumin 2.0 L TSH 3.92 H Free T4 1.35 Urine Color Urine Clarity Urine pH Ur Specific [place] Urine Protein Urine Ketones Urine Blood Urine Nitrite Urine Bilirubin Urine Urobilinogen Ur Leukocyte Esterase Urine RBC Urine WBC Ur Epithelial Cells Urine Crystals Urine Bacteria Urine Casts Urine Mucus Urine Other Ur Culture Indicated? Urine Glucose COVID-19 Source SARS-CoV-2 (PCR) Patient ABO/Rh Antibody Screen Crossmatch 05/01/21 05/01/21 05/01/21 08:00 08:00 08:05 WBC RBC Hgb Hct MCV MCH MCHC RDW Plt Count MPV Immature Gran % Neutrophils % Band Neutrophils % Lymphocytes % Monocytes % Eosinophils % Basophils % Metamyelocytes % Myelocytes % Nucleated RBC % Absolute Neutrophils Absolute Lymphocytes Absolute Monocytes Absolute Eosinophils Absolute Basophils RBC Morphology Polychromasia Hypochromasia Poikilocytosis Anisocytosis PT 11.2 H INR 1.1 D-Dimer 2230 H VBG Lactate 2.9 H* Sodium Potassium Chloride Carbon Dioxide Anion Gap BUN Creatinine Estimated GFR/1.73 m2 Glucose Calcium Magnesium Total Bilirubin AST ALT Alkaline Phosphatase Troponin I NT-Pro-B Natriuret Pep Total Protein Albumin TSH Free T4 Urine Color Urine Clarity Urine pH Ur Specific [place] Urine Protein Urine Ketones Urine Blood Urine Nitrite Urine Bilirubin Urine Urobilinogen Ur Leukocyte Esterase Urine RBC Urine WBC Ur Epithelial Cells Urine Crystals Urine Bacteria Urine Casts Urine Mucus Urine Other Ur Culture Indicated? Urine Glucose COVID-19 Source Nasal/Nares SARS-CoV-2 (PCR) Negative Patient ABO/Rh Antibody Screen Crossmatch 05/01/21 05/01/21 09:00 09:05 WBC RBC Hgb Hct MCV MCH MCHC RDW Plt Count MPV Immature Gran % Neutrophils % Band Neutrophils % Lymphocytes % Monocytes % Eosinophils % Basophils % Metamyelocytes % Myelocytes % Nucleated RBC % Absolute Neutrophils Absolute Lymphocytes Absolute Monocytes Absolute Eosinophils Absolute Basophils RBC Morphology Polychromasia Hypochromasia Poikilocytosis Anisocytosis PT INR D-Dimer VBG Lactate Sodium Potassium Chloride Carbon Dioxide Anion Gap BUN Creatinine Estimated GFR/1.73 m2 Glucose Calcium Magnesium Total Bilirubin AST ALT Alkaline Phosphatase Troponin I NT-Pro-B Natriuret Pep Total Protein Albumin TSH Free T4 Urine Color Yellow Urine Clarity Clear Urine pH 5.5 Ur Specific [place] 1.020 Urine Protein Trace H Urine Ketones Trace H Urine Blood Negative Urine Nitrite Negative Urine Bilirubin Small H Urine Urobilinogen 0.2 Ur Leukocyte Esterase Negative Urine RBC 3-5 H Urine WBC 0-2 Ur Epithelial Cells Few Urine Crystals Negative Urine Bacteria Moderate Urine Casts 10-20 Hyaline Urine Mucus Heavy Urine Other Few Renal Ur Culture Indicated? No Urine Glucose Negative COVID-19 Source SARS-CoV-2 (PCR) Patient ABO/Rh A Negative Antibody Screen NEGATIVE Crossmatch See Detail Last Vital Signs Temp 36.6 C 05/01/21 10:21 Pulse 93 H 05/01/21 10:21 Resp 29 H 05/01/21 10:21 BP 128/52 L 05/01/21 10:21 Pulse Ox 98 05/01/21 10:21
[2021-05-01 11:10] LABS: HCT 22.7 % (36.0-46.0)
[2021-05-01 11:11] LABS: Lactate 2.8 mmol/L (0.6-1.4)
[2021-05-01 11:18] LABS: Magnesium 1.4 mg/dL (1.8-2.4)
[2021-05-01 11:22] LABS: HGB 6.7 g/dL (11.2-15.7)
[2021-05-01 12:02] LABS: Procalcitonin 0.1 ng/mL
[2021-05-01] MEDS: Normal Saline 500 ML 1000 ML IV (13:28)
[2021-05-01] MEDS: Benzonatate 200 MG CAP PO ×2 (13:40→19:34)
--- NOTE | 2021-05-01 14:43 | NUR.NOTE ---
general surgery here for eval of patient. states feeling better after receiving first unit of blood. second unit running at this time.Nursing Note:
[2021-05-01] MEDS: Normal Saline Flush 10 ML SYR IVP ×2 (15:29→19:20)
[2021-05-01] MEDS: Normal Saline 1,000 ML 30 ML IV (15:29)
--- NOTE | 2021-05-01 15:29 | SCONE_ITS ---
Date of service: 05/01/21 Time of Service: 15:29 Assessment and Plan Assessment and plan (1) Lung nodules: Status: Acute Assessment and plan: CXR very concerning for metastatic disease. --CT chest in AM (2) Acute blood loss anemia: Status: Acute Assessment and plan: 71yo female presents with significant anemia and strong family history of colon cancer. Personal history of adenomatous polyps. Her last colonoscopy was in 2014, and did not demonstrate polyps. --CT abd/pel with contrast in AM --transfuse as necessary --supportive care --will need colonoscopy, and likely EGD, when clinically appropriate Pt discussed with Dr. Buck, Hospitalist (3) Cough: Status: Acute (4) Dyspnea: Status: Acute Assessment and plan: --supplemental oxygen prn --respiratory treatments Qualifiers: Dyspnea type: shortness of breath Qualified Code(s): R06.02 - Shortness of breath (5) Depressive disorder: Status: Acute (6) Asthma: Status: Acute Qualifiers: Asthma severity: mild Asthma complication type: uncomplicated (7) Diabetes type 2, controlled: Status: Chronic Qualifiers: Diabetes mellitus mcfp insulin use: without intermodal customer service use Diabetes mellitus complication status: with neurologic complications Diabetes mellitus complication detail: with polyneuropathy Qualified Code(s): E11.42 - Type 2 diabetes mellitus with diabetic polyneuropathy (8) TIMI (obstructive sleep apnea): Status: Chronic (9) History of colonic polyps: Status: Acute History of Present Illness History of Present Illness Chief Complaint: cough, shortness of breath Narrative: This is a 71-year-old white female with an extensive past medical history who presents emergency department with 3-week history of nonproductive cough and shortness of breath not associated with any chest pain or fever or rigors. Since February she has had a 25 to 30 pound weight loss. It has been somewhat intentional, as she has been more conscious of her diet, but admits that she does not exercise. Patient admits for the last 3 weeks she has had black semiformed stools. She used to have very hard stools, but has started taking Senna and they have become softer and more frequent. She also has some left lower quadrant abdominal pain. She had a left oophorectomy in the 1970s for an ovarian tumor. She denies hematochezia and hematemesis. She does have nightly heartburn when recumbent, and uses a few pillows to prop herself up. She has a strong family history of colon cancer including her father and her sister both of which of colon cancer. Patient herself was diagnosed with adenomatous polyps of her transverse and sigmoid colon during a colonoscopy April 04, 2012 @ [facility], Dr. Edgard Covington. Follow up c-scope was done 04/25/[address] Emelina Pressley and showed no colon polyps. She also has diverticulosis. On clinical exam in the ED, the patient is anemic with hemoglobin of 7.2, and she was hypotensive, somewhat fluid-responsive, and then received blood. A surgical consult was requested. I recommended CT of the chest/abd/pel with c ontrast, and further resuscitation with PRBCs, and IV fluids. Consults Consult date: 05/01/21 Requesting physician: John Buck Review of Systems Constitutional Constitutional: Denies anorexia, Reports body ache(s), Denies chills, Reports fatigue, Denies fever(s), Reports lethargy, Denies night sweats and Reports weight loss ENT Ears, Nose, Mouth, and Throat: Denies dysphagia, Reports dizziness (when coughing) and Denies odynophagia Cardiovascular Cardiovascular: Denies chest pain, Denies chest pain at rest and Reports dyspnea Respiratory Respiratory: Reports cough, Denies hemoptysis, Denies excessive phlegm production, Reports dyspnea and Reports wheezing Gastrointestinal Gastrointestinal: Reports melena, Denies hematochezia, Reports change in stool character, Reports constipation (improved with Senna use since February 2021), Denies dysphagia, Reports early satiety, Reports heartburn (nightly, with recumbency), Denies odynophagia, Denies vomiting and Denies hematemesis Genitourinary Genitourinary: Denies difficulty voiding and Denies dysuria Musculoskeletal Musculoskeletal: Reports arthralgias, Denies numbness and Denies tingling Neurologic Neurologic: Reports dizziness (when coughing), Denies numbness and Denies tingling Endocrine Endocrine: Reports fatigue Allergic/Immunologic Allergic/Immunologic: Reports wheezing [facility] Medical History (Updated 05/01/21 @ 15:26 by John Buck) Asthma Depression Diabetes (~2001) type 2 History of colonic polyps Hx of adenomatous polyp of colon (~03/2012) Hyperlipidemia Hypertension Melanoma (~03/2019) excised from sole of right foot; performed at [facility] [place] Obesity Sleep apnea wears CPAP mask Surgical History Colonoscopy - MAC (~04/04/12) 04/04/2012 (two adenomas removed one from transverse and one from sigmoid colon); subsequent colonoscopy 04/25/2015 showed no polyps Family History (Updated 05/01/21 @ 15:03 by John Buck) Mother Alcohol abuse Heart disease Hyperlipidemia Father Diabetes Alcohol abuse Personal history of malignant neoplasm colon cancer Hyperlipidemia Sister Personal history of malignant neoplasm colon cancer FAMILY HISTORY Diabetes Personal history of malignant neoplasm COLON Aortic aneurysm Depression Heart disease Suicide Brother Murder Brother Murder Social History (Updated 05/01/21 @ 15:04 by John Buck) Smoking/Tobacco Use Status: Former Tobacco Use Quit Date: 10/21/18 Tobacco: How many years used: 30 Smoking risk assessment performed?: Yes Alcohol Intake: current Alcohol Intake frequency: a few times a week Alcohol type: beer Drug use: Never Substance use type: does not use current occupation: [employer] Pets and animals: Yes Pets and animals: cat(s) Current gender identity: decline to answer What is your relationship status?: refused to answer How often do you talk on the phone with friends or family?: decline to answer How often do you get together with friends or relatives?: decline to answer How often do you attend scientologist or rastafari services?: decline to answer Do you belong to any clubs or organized social groups?: decline to answer Panel score (0-1 are the most socially isolated patients): 0 What type of physical activity do you participate in: decline to answer Duration: decline to answer Frequency: decline to answer Briseyda/Christianity: No preference Special briseyda needs: No Do you feel safe in your relationship?: Yes Exam Const General: cooperative, comfortable, no acute distress and diaphoretic Nutritional Appearance: obese Orientation: alert, awake and oriented x3 Neck Neck: supple and nontender Resp Effort & Inspection: not able to speak in complete sentences, no grunting, not labored, no nasal flaring and no respiratory distress Auscultation: bronchial breath sounds and wheezes Cardio Rate: regular rate Rhythm: regular rhythm Heart Sounds: S1 normal and S2 normal GI Inspection: obesity Palpation: soft, not firm, not rigid and nontender Auscultation: normal bowel sounds Neuro General: patient alert, patient awake and patient oriented x3 Cognition: normal cognition Speech: speech normal Extrem General: no clubbing, cyanosis or edema and no calf tenderness Psych Appearance: grossly normal Mood: congruent mood Affect: normal affect Attitude: cooperative Thought Process: normal Thought Content: normal Insight: insight good Judgment: judgment good Results Last Vital Signs Temp 97.0 F L 05/01/21 14:27 Pulse 91 H 05/01/21 14:41 Resp 18 05/01/21 14:41 BP 105/47 L 05/01/21 14:41 Pulse Ox 96 05/01/21 14:41 Labs Result diagrams: 05/01/21 11:00 05/01/21 07:22 Labs: Laboratory Results - last 24 hr 05/01/21 05/01/21 05/01/21 07:22 07:22 07:22 WBC 10.68 RBC 2.97 L Hgb 7.2 L Hct 24.9 L MCV 83.8 MCH 24.2 L MCHC 28.9 L RDW 17.2 H Plt Count 517 H MPV 9.5 Immature Gran % See Differential Neutrophils % 68.0 Band Neutrophils % 11 Lymphocytes % 11.0 Monocytes % 6.0 Eosinophils % 1.0 Basophils % 0.0 Metamyelocytes % 1 Myelocytes % 2 Nucleated RBC % 1 Absolute Neutrophils 8.44 H Absolute Lymphocytes 1.18 L Absolute Monocytes 0.64 Absolute Eosinophils 0.11 Absolute Basophils 0.00 RBC Morphology See Below Polychromasia Present Hypochromasia 2+ Poikilocytosis 1+ Anisocytosis 2+ PT INR D-Dimer VBG Lactate Sodium 139 Potassium 4.6 Chloride 102 Carbon Dioxide 21.6 Anion Gap 15.4 H BUN 25 H Creatinine 1.5 H Estimated GFR/1.73 m2 34.43 Glucose 193 H Calcium 8.9 Magnesium 1.3 L Total Bilirubin 0.3 AST 25 ALT 26 Alkaline Phosphatase 78 Troponin I < 0.05 NT-Pro-B Natriuret Pep 1198 H Total Protein 6.0 L Albumin 2.0 L Procalcitonin TSH 3.92 H Free T4 1.35 Urine Color Urine Clarity Urine pH Ur Specific [place] Urine Protein Urine Ketones Urine Blood Urine Nitrite Urine Bilirubin Urine Urobilinogen Ur Leukocyte Esterase Urine RBC Urine WBC Ur Epithelial Cells Urine Crystals Urine Bacteria Urine Casts Urine Mucus Urine Other Ur Culture Indicated? Urine Glucose COVID-19 Source SARS-CoV-2 (PCR) Patient ABO/Rh Antibody Screen Crossmatch 05/01/21 05/01/21 05/01/21 08:00 08:00 08:05 WBC RBC Hgb Hct MCV MCH MCHC RDW Plt Count MPV Immature Gran % Neutrophils % Band Neutrophils % Lymphocytes % Monocytes % Eosinophils % Basophils % Metamyelocytes % Myelocytes % Nucleated RBC % Absolute Neutrophils Absolute Lymphocytes Absolute Monocytes Absolute Eosinophils Absolute Basophils RBC Morphology Polychromasia Hypochromasia Poikilocytosis Anisocytosis PT 11.2 H INR 1.1 D-Dimer 2230 H VBG Lactate 2.9 H* Sodium Potassium Chloride Carbon Dioxide Anion Gap BUN Creatinine Estimated GFR/1.73 m2 Glucose Calcium Magnesium Total Bilirubin AST ALT Alkaline Phosphatase Troponin I NT-Pro-B Natriuret Pep Total Protein Albumin Procalcitonin TSH Free T4 Urine Color Urine Clarity Urine pH Ur Specific [place] Urine Protein Urine Ketones Urine Blood Urine Nitrite Urine Bilirubin Urine Urobilinogen Ur Leukocyte Esterase Urine RBC Urine WBC Ur Epithelial Cells Urine Crystals Urine Bacteria Urine Casts Urine Mucus Urine Other Ur Culture Indicated? Urine Glucose COVID-19 Source Nasal/Nares SARS-CoV-2 (PCR) Negative Patient ABO/Rh Antibody Screen Crossmatch 05/01/21 05/01/21 05/01/21 09:00 09:05 11:00 WBC RBC Hgb Hct MCV MCH MCHC RDW Plt Count MPV Immature Gran % Neutrophils % Band Neutrophils % Lymphocytes % Monocytes % Eosinophils % Basophils % Metamyelocytes % Myelocytes % Nucleated RBC % Absolute Neutrophils Absolute Lymphocytes Absolute Monocytes Absolute Eosinophils Absolute Basophils RBC Morphology Polychromasia Hypochromasia Poikilocytosis Anisocytosis PT INR D-Dimer VBG Lactate 2.8 H* Sodium Potassium Chloride Carbon Dioxide Anion Gap BUN Creatinine Estimated GFR/1.73 m2 Glucose Calcium Magnesium Total Bilirubin AST ALT Alkaline Phosphatase Troponin I NT-Pro-B Natriuret Pep Total Protein Albumin Procalcitonin TSH Free T4 Urine Color Yellow Urine Clarity Clear Urine pH 5.5 Ur Specific [place] 1.020 Urine Protein Trace H Urine Ketones Trace H Urine Blood Negative Urine Nitrite Negative Urine Bilirubin Small H Urine Urobilinogen 0.2 Ur Leukocyte Esterase Negative Urine RBC 3-5 H Urine WBC 0-2 Ur Epithelial Cells Few Urine Crystals Negative Urine Bacteria Moderate Urine Casts 10-20 Hyaline Urine Mucus Heavy Urine Other Few Renal Ur Culture Indicated? No Urine Glucose Negative COVID-19 Source SARS-CoV-2 (PCR) Patient ABO/Rh A Negative Antibody Screen NEGATIVE Crossmatch See Detail 05/01/21 05/01/21 05/01/21 11:00 11:00 11:00 WBC RBC Hgb 6.7 L* Hct 22.7 L MCV MCH MCHC RDW Plt Count MPV Immature Gran % Neutrophils % Band Neutrophils % Lymphocytes % Monocytes % Eosinophils % Basophils % Metamyelocytes % Myelocytes % Nucleated RBC % Absolute Neutrophils Absolute Lymphocytes Absolute Monocytes Absolute Eosinophils Absolute Basophils RBC Morphology Polychromasia Hypochromasia Poikilocytosis Anisocytosis PT INR D-Dimer VBG Lactate Sodium Potassium Chloride Carbon Dioxide Anion Gap BUN Creatinine Estimated GFR/1.73 m2 Glucose Calcium Magnesium 1.4 L Total Bilirubin AST ALT Alkaline Phosphatase Troponin I NT-Pro-B Natriuret Pep Total Protein Albumin Procalcitonin 0.1 TSH Free T4 Urine Color Urine Clarity Urine pH Ur Specific [place] Urine Protein Urine Ketones Urine Blood Urine Nitrite Urine Bilirubin Urine Urobilinogen Ur Leukocyte Esterase Urine RBC Urine WBC Ur Epithelial Cells Urine Crystals Urine Bacteria Urine Casts Urine Mucus Urine Other Ur Culture Indicated? Urine Glucose COVID-19 Source SARS-CoV-2 (PCR) Patient ABO/Rh Antibody Screen Crossmatch 05/01/21 14:00 WBC RBC Hgb Cancelled Hct Cancelled MCV MCH MCHC RDW Plt Count MPV Immature Gran % Neutrophils % Band Neutrophils % Lymphocytes % Monocytes % Eosinophils % Basophils % Metamyelocytes % Myelocytes % Nucleated RBC % Absolute Neutrophils Absolute Lymphocytes Absolute Monocytes Absolute Eosinophils Absolute Basophils RBC Morphology Polychromasia Hypochromasia Poikilocytosis Anisocytosis PT INR D-Dimer VBG Lactate Sodium Potassium Chloride Carbon Dioxide Anion Gap BUN Creatinine Estimated GFR/1.73 m2 Glucose Calcium Magnesium Total Bilirubin AST ALT Alkaline Phosphatase Troponin I NT-Pro-B Natriuret Pep Total Protein Albumin Procalcitonin TSH Free T4 Urine Color Urine Clarity Urine pH Ur Specific [place] Urine Protein Urine Ketones Urine Blood Urine Nitrite Urine Bilirubin Urine Urobilinogen Ur Leukocyte Esterase Urine RBC Urine WBC Ur Epithelial Cells Urine Crystals Urine Bacteria Urine Casts Urine Mucus Urine Other Ur Culture Indicated? Urine Glucose COVID-19 Source SARS-CoV-2 (PCR) Patient ABO/Rh Antibody Screen Crossmatch Imaging Chest x-ray: report reviewed and image reviewed Imaging Studies: CXR (05/01/21): IMPRESSION: There are multiple noncalcified non cavitated nodules throughout both lung klein. There are no associated pleural effusions. First consideration is for neoplasm-metastatic disease and correlation with this patient's past medical history is recommended. Other considerations are for infectious/inflammatory.
[2021-05-01] MEDS: Pantoprazole 40 MG VIAL IVP (15:30)
[2021-05-01] MEDS: PANTOPRAZOLE 80 MG in Normal Saline 100 ML 10 MG IV (15:30)
[2021-05-01 18:36] LABS: HCT 28.7 % (36.0-46.0); HGB 8.7 g/dL (11.2-15.7)
[2021-05-01] MEDS: buPROPion-CR 150 MG TABCR PO (19:34)
[2021-05-01] MEDS: predniSONE 40 MG, predniSONE 10 MG 50 MG PO (19:40)
[2021-05-01] MEDS: Triamcinolone 0.1% CR 80 GM TUBE TP (19:43)
[2021-05-01 20:13] LABS: Troponin I < 0.05 ng/mL (<0.06)
[2021-05-01] MEDS: rOPINIRole 1 MG TAB 2 MG PO (21:24)
[2021-05-02] VITALS (131 sets, daily range): BP systolic 90–125; BP diastolic 47–81; PULSE 62–105; RESP 1–31; TEMP 36–36.8; O2SAT 79–99
[2021-05-02] MEDS: predniSONE 40 MG, predniSONE 10 MG 50 MG PO ×2 (00:59→07:44)
[2021-05-02] MEDS: Albuterol/Ipratropium 3 ML UPD VIAL UPD ×5 (00:59→23:53)
[2021-05-02] MEDS: PANTOPRAZOLE 80 MG in Normal Saline 100 ML 10 MG IV ×2 (01:30→12:15)
[2021-05-02] MEDS: Normal Saline 1,000 ML 100 ML IV ×3 (07:00→19:45)
[2021-05-02 07:02] LABS: Abs Immature Grans 0.14 10^3/uL (0.0-0.06); Absolute Basophil Count 0.01 10^3/uL (0.0-0.2); Absolute Lymphocyte Count 0.53 10^3/uL (1.2-3.4); Absolute Monocyte Count 0.14 10^3/uL (0.1-0.8); Absolute Neutrophil Count 6.95 10^3/uL (1.2-6.7); Basophils % 0.1; HCT 29.7 % (36.0-46.0); HGB 8.9 g/dL (11.2-15.7); Immature Grans % 1.8; Lymphocytes % 6.8; MCH 25.3 pg (27.0-33.0); MCV 84.4 fL (80-95); MPV 9.4 fL (8.0-11.0); Monocytes % 1.8; Neutrophils % 89.5; Nucleated RBC 0 %; RBC 3.52 10^6/uL (3.93-5.22); RDW 16.9 % (11.7-14.6); RDW-SD 52.1 fL; WBC 7.77 10^3/uL (4.4-10.8)
[2021-05-02] MEDS: Omnipaque 350 MG/ML 50 ML BTL PO (07:04)
[2021-05-02 07:29] LABS: ALT 22 U/L (14-59); AST 18 U/L (15-37); Albumin 1.8 g/dL (3.4-5.0); Alkaline Phosphatase 73 U/L (46-116); Anion Gap 9.7 mmol/L (3-11); BUN 18 mg/dL (7-18); Bilirubin, Total 0.3 mg/dL (0.2-1.0); CO2 23.3 mmol/L (21.0-32.0); Calcium 8.5 mg/dL (8.5-10.1); Chloride 109 mmol/L (98-107); Estimated GFR 54.97 (mL/min/1.73m2); Glucose 199 mg/dL (74-106); Sodium 142 mmol/L (136-145); Total Protein 5.5 g/dL (6.4-8.2)
[2021-05-02 07:43] LABS: Anisocytosis 1+; Basophilic Stippling Present; Diff Comment Diff Reviewed; Platelet Count 387 10^3/uL (130-400)
[2021-05-02 07:44] LABS: Hypochromasia 2+; Microcytosis 2+; Poikilocytes 2+; Polychromasia Present
[2021-05-02] MEDS: Benzonatate 200 MG CAP PO ×3 (07:44→19:43)
[2021-05-02] MEDS: diphenhydrAMINE 25 MG CAP 50 MG PO (07:44)
[2021-05-02] MEDS: Escitalopram 20 MG TAB 40 MG PO (07:44)
[2021-05-02] MEDS: buPROPion-CR 150 MG TABCR 300 MG PO (07:45)
[2021-05-02] MEDS: Insulin Aspart 300 UNITS/3 ML PEN SC ×4 (08:27→21:04)
[2021-05-02] MEDS: Mometasone 220 MCG 14 DOSE INHALER IH (08:27)
--- NOTE | 2021-05-02 09:09 | INITIAL_ITS ---
- If Service Date Differs Date of service: 05/02/21 Time of Service: 09:09 Care Management Initial Assess REASON FOR HOSPITALIZATION:: Anemia, Hypotension PAST MEDICAL HISTORY/PAST SURGICAL HISTORY:: Asthma, depression, diabetes, hx of colonic polyps, adenomatous polyp of colon, hyperlipidemia, hypertension, melanoma, obesity, sleep apnea, colonoscopy PREVIOUS FUNCTIONAL STATUS/SOCIAL/FAMILY SUPPORTS:: Jerica resides in [facility] with her significant other, Rojas. 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 CURRENT FUNCTIONAL STATUS:: Jerica was sitting up on the side of her bed, eating a popsicle when CM met with her. She was pleasant in interaction and forthcoming with information. She talked in length about her supportive family and Has patient been provided with info about the portal/API?: Yes Did the patient sign up for the portal?: No CODE STATUS:: Full Code INSURANCE COVERAGE / FINANCIAL ISSUES:: [place]. Medicare PRIMARY CARE PHYSICIAN:: Bharati Cooper POTENTIAL DISCHARGE NEEDS:: Follow up appointment with PCP. PATIENT/FAMILY EDUCATION NEEDS:: Review discharge instructions, discuss Ask Me Three. ANTICIPATED BARRIERS TO DISCHARGE:: None identified at this time. TRANSPORTATION:: Via private vehicle with her significant other. PLAN:: Jerica will return home when ready per MD. She will follow up with her PCP and plan of care as prescribed. CM continues to follow.
--- NOTE | 2021-05-02 09:21 | PGE_ITS ---
Date of Service Date of service: 05/02/21 Time of Service: : Assessment and Plan Assessment and plan (1) Lung nodules: Status: Acute (2) Acute blood loss anemia: Status: Acute (3) Melanoma: Status: Resolved (4) TIMI (obstructive sleep apnea): Status: Chronic (5) RLS (restless legs syndrome): Status: Chronic (6) Diabetes type 2, controlled: Status: Chronic Qualifiers: Diabetes mellitus complication detail: with polyneuropathy Diabetes mellitus complication status: with neurologic complications Diabetes mellitus shelter insulin use: without shelter use Qualified Code(s): E11.42 - Type 2 diabetes mellitus with diabetic polyneuropathy (7) Depression: Status: Chronic (8) Hemorrhage of rectum and anus: Status: Acute (9) Hyperlipidemia: Status: Acute (10) Family history of GI malignancy: Status: Acute (11) Asthma: Status: Chronic Qualifiers: Asthma complication type: uncomplicated Asthma severity: mild (12) Depressive disorder: Status: Chronic (13) Hx of malignant melanoma of skin: Status: Acute (14) History of colonic polyps: Status: Chronic (15) Stage IV carcinoma of colon: Status: Acute (16) Diabetes mellitus type 2 in nonobese: Status: Acute (17) Essential hypertension: Status: Acute (18) COPD (chronic obstructive pulmonary disease): Status: Chronic (19) Former smoker: Status: Acute (20) Partial obstruction of colon: Status: Acute (21) Colon cancer: Status: Chronic (22) Colon cancer metastasized to multiple sites: Status: Acute Assessment and plan: I did discuss the CT scan findings with the patient today. I did personally review all CTs and labs today It is at this discussion that she did tell me about the melanoma that she had previously had. With the aggressive and rapid nature of this tumor there is definitely a chance that this could be widely metastatic melanoma and its very important that we get tissue for diagnosis. We will attempt to do a colonoscopy or at least a flex sig and get biopsies. This mass is where the bleeding/anemia is emanating from. I do not feel she needs to have an EGD. I did review the case with anesthesia. We did obtain PFTs which are relatively normal. Please see the chart. Her cough is well controlled on the Tessalon Perles O2 sats are 96% on room air. The other concern at this point is that this is a near obstructing tumor. She will either need to go for emergent stenting or have a diverting colostomy. Patient really does not want a diverting ostomy. Will be able to get a better idea of what needs to happen after the colonoscopy. We discussed the extent of disease and prognosis. This is not going to be incurable. However with the development of the immunologic modulating agents, there is a significant chance that she may be able to respond well, and increase her longevity. Again this depends on tissue type, And patient response to chemotherapy. Once we know what were dealing with we will make the appropriate referrals to oncology whether this is a melanoma versus a adenocarcinoma. Without treatment and depending if this is a melanoma or a adenocarcinoma, 3 to 6 months. With treatment 1 year to 18 months-again depending on tissue type and patient's response to chemotherapy. Hopefully the patient's hemoglobin can remain stable and she can go home in the interim Informed consent is obtained for the procedural (explained in simple layman's terms that the pt and/or family could understand) explaining risks vs benefits and alternatives to the procedure and consequences if we do not do the procedure and need/rational for the procedure. Risks include but are not limited to: bleeding, infection, perforation of colon. This would necessitate emergency surgery to repair the damage w/ possible ostomy; and other associated complications w/ the required surgery. Also complications of anesthesia including aspiration, IN/CVA/. I discussed with the patient would they could expect during the procedure, post procedure and recovery time and risks. 45 minutes was spent in consultation with the patient today directly. 90 minutes today in care. Subjective Subjective Interval history since last seen: Is a 71-year-old female who originally came to the ER on 05.01 complaining of anemia and cough and shortness of breath. She had a chest x-ray which showed widely spread metastases. She did have a CT of the abdomen and pelvis and chest today. Please see results in [employer]. Does show widely disseminated cancer. It does show a near obstructing mass in the sigmoid colon that has spread out to the adjacent soft tissues throughout the abdomen and eroding through into the subcutaneous tissues and into the buttocks. Patient says that since January she has had a 30 pound weight loss. She has had a dry cough which has not resolved. She has had a good appetite. She has had extreme difficulty moving her bowels and is on multiple stool softeners. She denies any pain. She denies any chest pain. She is a former smoker. She has an extensive family history of colon cancer. Her brother and her father had colorectal cancer less than age 50. She has not had genetic testing. Her last colonoscopy was in 2014 and was essentially normal. She missed her 2019 colonoscopy due to Covid. She also has a history of a stage T3a melanoma. This was resected from the bottom of her right foot. She did have sentinel lymph nodes done and these were negative. She declined adjuvant therapy. Did review all her all her notes from oncology and pathology reports from [facility] [place]. She does see dermatology regularly for skin exams. Exam HENMT Other: No jaundice cranial nerves II through XII are intact. No focal neuro deficits. Chest Chest: normal inspection of the chest Resp Effort & Inspection: normal respiratory effort and able to speak in complete sentences Auscultation: clear to auscultation bilaterally Cardio Rate: regular rate Rhythm: regular rhythm GI Inspection: normal to inspection Other: Soft. Nontender today. Good bowel sounds today. Extrem Other: I did not examine her lower extremities. Objective Last Vital Signs Temp 36.0 C L 05/01/21 23:26 Pulse 86 05/02/21 06:46 Resp 20 05/02/21 06:46 BP 96/47 L 05/02/21 05:00 Pulse Ox 96 05/02/21 06:46 Laboratory Results - last 24 hr 05/01/21 05/01/21 05/01/21 09:00 09:05 11:00 WBC RBC Hgb Hct MCV MCH MCHC RDW Plt Count MPV Immature Gran % Neutrophils % Lymphocytes % Monocytes % Eosinophils % Basophils % Nucleated RBC % Absolute Neutrophils Absolute Lymphocytes Absolute Monocytes Absolute Eosinophils Absolute Basophils RBC Morphology Polychromasia Hypochromasia Poikilocytosis Basophilic Stippling Anisocytosis Microcytosis VBG Lactate Sodium Potassium Chloride Carbon Dioxide Anion Gap BUN Creatinine Estimated GFR/1.73 m2 Glucose Calcium Magnesium Total Bilirubin AST ALT Alkaline Phosphatase Troponin I < 0.05 Total Protein Albumin Procalcitonin Urine Color Yellow Urine Clarity Clear Urine pH 5.5 Ur Specific [place] 1.020 Urine Protein Trace H Urine Ketones Trace H Urine Blood Negative Urine Nitrite Negative Urine Bilirubin Small H Urine Urobilinogen 0.2 Ur Leukocyte Esterase Negative Urine RBC 3-5 H Urine WBC 0-2 Ur Epithelial Cells Few Urine Crystals Negative Urine Bacteria Moderate Urine Casts 10-20 Hyaline Urine Mucus Heavy Urine Other Few Renal Ur Culture Indicated? No Urine Glucose Negative Patient ABO/Rh A Negative Antibody Screen NEGATIVE Crossmatch See Detail 05/01/21 05/01/21 05/01/21 11:00 11:00 11:00 WBC RBC Hgb 6.7 L* Hct 22.7 L MCV MCH MCHC RDW Plt Count MPV Immature Gran % Neutrophils % Lymphocytes % Monocytes % Eosinophils % Basophils % Nucleated RBC % Absolute Neutrophils Absolute Lymphocytes Absolute Monocytes Absolute Eosinophils Absolute Basophils RBC Morphology Polychromasia Hypochromasia Poikilocytosis Basophilic Stippling Anisocytosis Microcytosis VBG Lactate 2.8 H* Sodium Potassium Chloride Carbon Dioxide Anion Gap BUN Creatinine Estimated GFR/1.73 m2 Glucose Calcium Magnesium 1.4 L Total Bilirubin AST ALT Alkaline Phosphatase Troponin I Total Protein Albumin Procalcitonin Urine Color Urine Clarity Urine pH Ur Specific [place] Urine Protein Urine Ketones Urine Blood Urine Nitrite Urine Bilirubin Urine Urobilinogen Ur Leukocyte Esterase Urine RBC Urine WBC Ur Epithelial Cells Urine Crystals Urine Bacteria Urine Casts Urine Mucus Urine Other Ur Culture Indicated? Urine Glucose Patient ABO/Rh Antibody Screen Crossmatch 05/01/21 05/01/21 05/01/21 11:00 14:00 18:25 WBC RBC Hgb Cancelled 8.7 L Hct Cancelled 28.7 L D MCV MCH MCHC RDW Plt Count MPV Immature Gran % Neutrophils % Lymphocytes % Monocytes % Eosinophils % Basophils % Nucleated RBC % Absolute Neutrophils Absolute Lymphocytes Absolute Monocytes Absolute Eosinophils Absolute Basophils RBC Morphology Polychromasia Hypochromasia Poikilocytosis Basophilic Stippling Anisocytosis Microcytosis VBG Lactate Sodium Potassium Chloride Carbon Dioxide Anion Gap BUN Creatinine Estimated GFR/1.73 m2 Glucose Calcium Magnesium Total Bilirubin AST ALT Alkaline Phosphatase Troponin I Total Protein Albumin Procalcitonin 0.1 Urine Color Urine Clarity Urine pH Ur Specific [place] Urine Protein Urine Ketones Urine Blood Urine Nitrite Urine Bilirubin Urine Urobilinogen Ur Leukocyte Esterase Urine RBC Urine WBC Ur Epithelial Cells Urine Crystals Urine Bacteria Urine Casts Urine Mucus Urine Other Ur Culture Indicated? Urine Glucose Patient ABO/Rh Antibody Screen Crossmatch 05/02/21 05/02/21 06:05 06:05 WBC 7.77 RBC 3.52 L Hgb 8.9 L Hct 29.7 L MCV 84.4 MCH 25.3 L MCHC 30.0 L RDW 16.9 H Plt Count 387 D MPV 9.4 Immature Gran % 1.8 Neutrophils % 89.5 Lymphocytes % 6.8 Monocytes % 1.8 Eosinophils % 0.0 Basophils % 0.1 Nucleated RBC % 0 Absolute Neutrophils 6.95 H Absolute Lymphocytes 0.53 L Absolute Monocytes 0.14 Absolute Eosinophils 0.00 Absolute Basophils 0.01 RBC Morphology See Below Polychromasia Present Hypochromasia 2+ Poikilocytosis 2+ Basophilic Stippling Present Anisocytosis 1+ Microcytosis 2+ VBG Lactate Sodium 142 Potassium 5.0 Chloride 109 H Carbon Dioxide 23.3 Anion Gap 9.7 BUN 18 D Creatinine 1.0 D Estimated GFR/1.73 m2 54.97 Glucose 199 H Calcium 8.5 Magnesium Total Bilirubin 0.3 AST 18 ALT 22 Alkaline Phosphatase 73 Troponin I Total Protein 5.5 L Albumin 1.8 L Procalcitonin Urine Color Urine Clarity Urine pH Ur Specific [place] Urine Protein Urine Ketones Urine Blood Urine Nitrite Urine Bilirubin Urine Urobilinogen Ur Leukocyte Esterase Urine RBC Urine WBC Ur Epithelial Cells Urine Crystals Urine Bacteria Urine Casts Urine Mucus Urine Other Ur Culture Indicated? Urine Glucose Patient ABO/Rh Antibody Screen Crossmatch
[2021-05-02] MEDS: Omnipaque 350 MG/ML 100 ML BTL IJ (09:22)
[2021-05-02] MEDS: Normal Saline - Diluent 50 ML VIAL IV (09:22)
[2021-05-02] MEDS: Normal Saline Flush 10 ML SYR IVP (09:23)
[2021-05-02] MEDS: Triamcinolone 0.1% CR 15 GM TUBE TP (10:25)
[2021-05-02 10:27] LABS: Magnesium 1.7 mg/dL (1.8-2.4)
--- NOTE | 2021-05-02 11:05 | DI.CT_ITS ---
Exam(s) CT CHEST PE ABD PELVIS W EXAM: CT CHEST PE ABD PELVIS W CLINICAL HISTORY: ? new malignancy. TECHNIQUE: Imaging Protocol: Axial CT angiography was performed with multi-slice acquisition and mu lti-planar and/or 3D reconstructions. CONTRAST MATERIAL: Intravenous: Omnipaque 350 Contrast volume:100 ml Oral contrast administered. COMPARISON: CT RENAL COLIC WO CONTRAST from 08/14/2012 CT RENAL COLIC WO CONTRAST from 08/14/2012 CR XR PORTABLE CHEST AP from 05/01/2021 CR XR PORTABLE CHEST AP from 05/01/2021 FINDINGS: CHEST: Pulmonary Arteries: No evidence of filling defect to suggest pulmonary emboli. Tracheobronchial tree: Patent where visualized. Mediastinum and Linda: Mediastinal adenopathy with precarinal lymph node measuring 3.2 cm Pulmonary parenchyma: Innumerable bilateral,mainly circumscribed, pulmonary nodules, consistent with metastatic disease. Large mass seen posterior to the right hilum measuring 7 by 6 cm. No evidence of pneumonia. Pleura: No effusion or pneumothorax. Heart: The heart is not dilated. Mild coronary artery calcifications are seen. Aorta: Thoracic aorta non-dilated. Bones: No lytic or blastic lesions identified. Fixation plate left clavicle. ABDOMEN: Liver: Normal density. Multiple small abnormal low-density lesions consistent with metastatic disease . Portal, Superior Mesenteric, and Splenic Veins: Unremarkable. Gallbladder and Biliary Tract: Status post cholecystectomy. No radiodense calculus or dilation. Pancreas: Normal density, no abnormal calcifications or inflammatory process. Spleen: Multiple abnormal low-density lesions suspicious for metastatic disease. Adrenals: Right: 4.7 centimeter heterogeneous mass, suspicious for metastatic disease. Left: No mass es seen. Kidneys: Normal size, contour and axis. No radiodense stones or obstructive uropathy. Bilateral renal cysts, the largest at the right lower pole. There are a few small nodules adjacent to both kidneys s uspicious for metastatic disease. Abdominal Aorta: Abdominal portion non-dilated. Mild atherosclerotic changes. Bowel: Irregular infiltrative appearing mass centered in the sigmoid colon. There are adjacent abnor mal appearing nodules as well as adjacent abnormal thickening of a loop of small bowel. There are mu ltiple abnormal intramural masses seen in multiple loops of bowel, consistent with metastatic disease . There is no evidence of obstruction. Sigmoid diverticulosis. Peritoneal Cavity: There is a small amount of ascites. There are multiple abnormal soft tissue nodul es within the mesentery consistent with metastatic deposits. Lymph Nodes: Within normal limits. Bones: Unremarkable. Soft Tissues: Multiple abnormal small nodules in the subcutaneous tissues, greatest in the left side of the abdomen and left buttock region. PELVIS: Bladder: Nearly empty., no gross wall thickening. Reproductive Organs: Unremarkable as visualized. The left ovary is not visible and may be involved i n the sigmoid mass. Lymph Nodes: Within normal limits. Bones: Degenerative changes. No lytic or blastic lesions are seen. IMPRESSION: 1. Multiple bilateral pulmonary metastases. No evidence of pulmonary embolism. 2. Irregular mass centered in sigmoid colon. Numerous sites of metastatic disease, involving liver, spleen and multiple other loops of bowel as well as right adrenal gland. Multiple abnormal mesenteri c and soft tissue nodules. RADIATION DOSE DELIVERED: 1,536.46mGy.cm Total DLP DATA REPOSITORY: All CT scans at this facility are submitted to the National Radiology Data Registry (NRDR) Dose Index Registry (DIR) with the [employer] (ACR). RADIATION OPTIMIZATION: All CT scans at this facility use at least one of these dose optimization te chniques: automated exposure control; mA and/or kV adjustment per patient size (includes targeted exa ms where dose is matched to clinical indication); or iterative reconstruction.
--- NOTE | 2021-05-02 13:44 | PGE_ITS ---
Date of Service Date of service: 05/02/21 Time of Service: 13:44 Assessment and Plan Assessment and plan (1) Acute blood loss anemia: Status: Acute Assessment and plan: Hb is up to 8.9 gm this morning. Will continue to monitor but does not need repeat transfusion today. (2) Colon cancer metastasized to multiple sites: Status: Acute Assessment and plan: metastatic disease is most likely from colon cancer as she has hx of tubular adenoma and strong family hx of colon cancer and the primary lesion appears to be an infiltrative mass in the sigmoid colon. Dr. Domingo plans to perform flex sig tomorrow to obtain tissue biopsy so the patient can be referred for chemotherapy and definitive treatment of the obstructing mass, i.e., resection vs stenting to maintain patency while she receives chemo. (3) Partial obstruction of colon: Status: Acute Assessment and plan: as above (4) Hx of malignant melanoma of skin: Status: Acute Assessment and plan: records from [facility] [place] indicate that she had complete excision of the lesion from her foot and had negative lymph nodes. She has been going for followup every [address] [facility] w/ Dr. Myke Connor, surgical oncologist. Subjective Subjective Interval history since last seen: Patient seen w/ Dr. Domingo and Dr. Domingo explained to the patient the multiple metastatic lesions the patient has throughout her lungs, liver, abdomen and pelvis and that the focal mass appears to be from the colon. She also explained to the patient that she will likely devlope bowel obstruction unless she has resection of the focal area in her sigmoid colon or has a stent. It was explained to the patient she may have a survival of up to 2 yrs w/ chemotherapy but without treatment she will have 6 months or less. Also there is a remote chance that the metastatic cancer is from her previous melanoma although more than likely this mets represents spread od a primary colon cancer. Objective Last Vital Signs Temp 36.8 C 05/02/21 12:00 Pulse 81 05/02/21 11:10 Resp 23 05/02/21 09:15 BP 120/66 05/02/21 09:01 Pulse Ox 97 05/02/21 12:00 Laboratory Results - last 24 hr 05/01/21 05/01/21 05/01/21 09:05 11:00 18:25 WBC RBC Hgb 8.7 L Hct 28.7 L D MCV MCH MCHC RDW Plt Count MPV Immature Gran % Neutrophils % Lymphocytes % Monocytes % Eosinophils % Basophils % Nucleated RBC % Absolute Neutrophils Absolute Lymphocytes Absolute Monocytes Absolute Eosinophils Absolute Basophils RBC Morphology Polychromasia Hypochromasia Poikilocytosis Basophilic Stippling Anisocytosis Microcytosis Sodium Potassium Chloride Carbon Dioxide Anion Gap BUN Creatinine Estimated GFR/1.73 m2 Glucose Calcium Magnesium Total Bilirubin AST ALT Alkaline Phosphatase Troponin I < 0.05 Total Protein Albumin Patient ABO/Rh A Negative Antibody Screen NEGATIVE Crossmatch See Detail 05/02/21 05/02/21 06:05 06:05 WBC 7.77 RBC 3.52 L Hgb 8.9 L Hct 29.7 L MCV 84.4 MCH 25.3 L MCHC 30.0 L RDW 16.9 H Plt Count 387 D MPV 9.4 Immature Gran % 1.8 Neutrophils % 89.5 Lymphocytes % 6.8 Monocytes % 1.8 Eosinophils % 0.0 Basophils % 0.1 Nucleated RBC % 0 Absolute Neutrophils 6.95 H Absolute Lymphocytes 0.53 L Absolute Monocytes 0.14 Absolute Eosinophils 0.00 Absolute Basophils 0.01 RBC Morphology See Below Polychromasia Present Hypochromasia 2+ Poikilocytosis 2+ Basophilic Stippling Present Anisocytosis 1+ Microcytosis 2+ Sodium 142 Potassium 5.0 Chloride 109 H Carbon Dioxide 23.3 Anion Gap 9.7 BUN 18 D Creatinine 1.0 D Estimated GFR/1.73 m2 54.97 Glucose 199 H Calcium 8.5 Magnesium 1.7 L Total Bilirubin 0.3 AST 18 ALT 22 Alkaline Phosphatase 73 Troponin I Total Protein 5.5 L Albumin 1.8 L Patient ABO/Rh Antibody Screen Crossmatch Reviewed Pertinent PMH: Yes Objective Narrative Objective Narrative: FINDINGS: CHEST: Pulmonary Arteries: No evidence of filling defect to suggest pulmonary emboli. Tracheobronchial tree: Patent where visualized. Mediastinum and Linda: Mediastinal adenopathy with precarinal lymph node measuring 3.2 cm Pulmonary parenchyma: Innumerable bilateral,mainly circumscribed, pulmonary nodules, consistent with metastatic disease. Large mass seen posterior to the right hilum measuring 7 by 6 cm. No evidence of pneumonia. Pleura: No effusion or pneumothorax. Heart: The heart is not dilated. Mild coronary artery calcifications are seen. Aorta: Thoracic aorta non-dilated. Bones: No lytic or blastic lesions identified. Fixation plate left clavicle. ABDOMEN: Liver: Normal density. Multiple small abnormal low-density lesions consistent with metastatic disease. Portal, Superior Mesenteric, and Splenic Veins: Unremarkable. Gallbladder and Biliary Tract: Status post cholecystectomy. No radiodense calculus or dilation. Pancreas: Normal density, no abnormal calcifications or inflammatory process. Spleen: Multiple abnormal low-density lesions suspicious for metastatic disease. Adrenals: Right: 4.7 centimeter heterogeneous mass, suspicious for metastatic disease. Left: No masses seen. Kidneys: Normal size, contour and axis. No radiodense stones or obstructive uropathy. Bilateral renal cysts, the largest at the right lower pole. There are a few small nodules adjacent to both kidneys suspicious for metastatic disease. Abdominal Aorta: Abdominal portion non-dilated. Mild atherosclerotic changes. Bowel: Irregular infiltrative appearing mass centered in the sigmoid colon. There are adjacent abnormal appearing nodules as well as adjacent abnormal thickening of a loop of small bowel. There are multiple abnormal intramural masses seen in multiple loops of bowel, consistent with metastatic disease. There is no evidence of obstruction. Sigmoid diverticulosis. Peritoneal Cavity: There is a small amount of ascites. There are multiple abnormal soft tissue nodules within the mesentery consistent with metastatic deposits. Lymph Nodes: Within normal limits. Bones: Unremarkable. Soft Tissues: Multiple abnormal small nodules in the subcutaneous tissues, greatest in the left side of the abdomen and left buttock region. PELVIS: Bladder: Nearly empty., no gross wall thickening. Reproductive Organs: Unremarkable as visualized. The left ovary is not visible and may be involved in the sigmoid mass. Lymph Nodes: Within normal limits. Bones: Degenerative changes. No lytic or blastic lesions are seen. IMPRESSION: 1.Multiple bilateral pulmonary metastases. No evidence of pulmonary embolism. 2. Irregular mass centered in sigmoid colon. Numerous sites of metastatic disease, involving liver, spleen and multiple other loops of bowel as well as right adrenal gland. Multiple abnormal mesenteric and soft tissue nodules.
[2021-05-02] MEDS: Bisacodyl 5 MG TABEC 10 MG PO (15:08)
[2021-05-02] MEDS: buPROPion-CR 150 MG TABCR PO (19:43)
[2021-05-02] MEDS: rOPINIRole 1 MG TAB 2 MG PO (21:06)
--- NOTE | 2021-05-02 21:30 | W.PFT ---
Date of service: 05/02/21 Time of Service: 01:15 Pulmonary Function Test Result Interpretation Spirometry: Somewhat poor patient effort, no evidence of obstructive airways disease. No bronchodilator testing was carried out Impression Somewhat poor patient effort, no evidence of obstructive airways disease. No bronchodilator testing was carried out Clinical Correlation therefore is recommended.
[2021-05-03] VITALS (54 sets, daily range): BP systolic 89–163; BP diastolic 47–96; PULSE 65–104; RESP 1–27; TEMP 35.9–36.9; O2SAT 88–100; BMI 34.3
--- NOTE | 2021-05-03 | DI.CT_ITS ---
Exam(s) CT HEAD WO/W EXAM: CT HEAD WO/W CLINICAL HISTORY: mets/oncologic work-up. TECHNIQUE: Imaging Protocol: Both noninfused and contrast infused CT scans of the brain were perform ed. IV Contrast Dose =75 cc Axial computed tomography images with coronal and sagittal reformatted images were created and review ed COMPARISON: No exams were available for comparison FINDINGS: There are no skull fractures nor fluid in the visualized paranasal sinuses. No lytic skull lesions identified. Mastoid air cells are under developed. There is no evidence of intracranial hemorrhage, mass effect, or shift of midline structures. There are no extra-axial fluid collections. The ventricles are not enlarged or shifted and there is no blo od within the ventricular system nor within the basal cisterns. There are no ring enhancing lesions in the brain and there is no abnormal meningeal enhancement, foca l or diffuse. IMPRESSION: No significant intracranial findings. No significant enhancing intracranial findings to suggest metastatic disease.. Clinically indicated follow-up MRI can be performed for added sensitivity and specificity. RADIATION DOSE DELIVERED: 1,460.99mGy.cm Total DLP DATA REPOSITORY: All CT scans at this facility are submitted to the National Radiology Data Registry (NRDR) Dose Index Registry (DIR) with the [employer] (ACR). RADIATION OPTIMIZATION: All CT scans at this facility use at least one of these dose optimization te chniques: automated exposure control; mA and/or kV adjustment per patient size (includes targeted exa ms where dose is matched to clinical indication); or iterative reconstruction.
[2021-05-03] MEDS: Normal Saline 1,000 ML 100 ML IV ×2 (05:13→15:13)
[2021-05-03] MEDS: Albuterol/Ipratropium 3 ML UPD VIAL UPD ×3 (05:57→19:08)
[2021-05-03 06:49] LABS: HCT 28.7 % (36.0-46.0); HGB 8.8 g/dL (11.2-15.7)
[2021-05-03 07:07] LABS: LDH 175 U/L (81-234)
[2021-05-03] MEDS: Mometasone 220 MCG 14 DOSE INHALER IH (08:05)
--- NOTE | 2021-05-03 09:02 | PGE_ITS ---
Date of Service Date of service: 05/03/21 Time of Service: 09:02 Assessment and Plan Assessment and plan (1) Acute blood loss anemia: Status: Acute Assessment and plan: Hb stable at 8.8 gm. Will continue to monitor and once we have her iron studies she can be put on parenteral iron. At present she does not need another transfusion as she is current asymptomatic from her anemia (however, she has been pretty much at bedrest; we will see how she feels once she is out of bed). (2) Colon cancer metastasized to multiple sites: Status: Acute Assessment and plan: multiple metastatic disease (lungs, chest lymph nodes, liver, abdomen and pelvis). Awaiting colonoscopy to assess for obstruction and for tissue diagnosis. (3) Partial obstruction of colon: Status: Suspected Assessment and plan: suspected based on CT images. Await c-scope this morning (4) Hx of malignant melanoma of skin: Status: Acute Assessment and plan: records from [facility] indicate that she had complete excision of the lesion from her foot and had negative lymph nodes. She has been going for followup every 6 months at [facility] w/ Dr. Myke Connor, surgical oncologist. Subjective Subjective Patient reports: no new complaints; denies shortness of breath Interval history since last seen: Despite the news of metastatic disease, she s eems to be in good spirits. She is scheduled for colon endoscopy at 11 am today. Her Hb has stabilized at 8.8 gm. CEA and iron studies are still pending. Once her endoscopy is done we will have a better idea as to how close her sigmoid colon is to being obstructed but it will be a few days before the pathology will be back. Exam Narrative Exam Narrative: Alert/oriented, pleasant, in no distress or discomfort Lungs: clear Heart: RRR Abdomen: bowel sounds present but quiet, soft and non-tender to palpation Extremities: no edema Objective Last Vital Signs Temp 36.0 C L 05/02/21 20:06 Pulse 76 05/03/21 06:08 Resp 26 H 05/03/21 06:15 BP 117/65 05/03/21 06:08 Pulse Ox 93 05/03/21 06:15 Laboratory Results - last 24 hr 05/02/21 05/03/21 05/03/21 06:05 06:20 06:20 Hgb 8.8 L Hct 28.7 L Magnesium 1.7 L Lactate Dehydrogenase TSH 2.10 05/03/21 06:20 Hgb Hct Magnesium Lactate Dehydrogenase 175 TSH
[2021-05-03] MEDS: PANTOPRAZOLE 80 MG in Normal Saline 100 ML 10 MG IV (09:27)
--- NOTE | 2021-05-03 11:14 | W.ANESPRE ---
General Info Date of Service Date Performed: 05/03/21 Height: 4 ft 11 in Weight: 77.111 kg Body Mass Index (BMI): 34.3 Surgical Procedure: Operation Date: 05/03/21 11:50 Proposed Procedures Side Surgeon p Colonoscopy/Gastroscopy Araceli Domingo DO Operation Date: 05/03/21 12:20 Proposed Procedures Side Surgeon p Colonoscopy Araceli Domingo DO Meds Allergies and Home Medications Allergies Allergy/AdvReac Type Severity Reaction Status Date / Time cortisone Allergy Intermediate burning Unverified 05/01/21 07:10 rash ketoconazole Allergy Intermediate SKIN RASH Unverified 05/01/21 07:10 Sulfa (Sulfonamide Allergy Intermediate RASH Unverified 05/01/21 07:10 Antibiotics) dextromethorphan Allergy Unknown HIVES Unverified 05/01/21 07:10 guaifenesin Allergy Unknown HIVES Unverified 05/01/21 07:10 povidone-iodine Allergy Unknown RED SKIN; Unverified 05/01/21 07:10 REYES chlorhexidine AdvReac Unknown DOES NOT Unverified 05/01/21 07:10 KNOW FOR SURE Home Medication Medication Instructions Recorded aspirin [Aspirin Low-Strength] 1 tab PO DAILY tab 02/10/13 Blood Glucose Test #100 strip 04/13/15 nystatin (bulk) 1 ea MISCELLANEOUS DAILY #60 gm 03/23/16 calcium carb-vit D3-minerals 600 1 tab PO DAILY tab 04/06/19 mg calcium-400 unit tablet fluticasone propionate 50 1 spray NS DAILY PRN #1 gm 04/06/19 mcg/actuation nasal spray,suspension docusate sodium 100 mg capsule 100 mg PO DAILY #90 cap 04/20/19 nystatin 100,000 unit/gram topical 1 applic TP BID PRN #60 gm 04/30/19 powder losartan 100 mg tablet 100 mg PO DAILY #90 tab 11/18/19 albuterol sulfate 90 mcg/actuation 1 - 2 puff IH QID PRN #18 gm 05/04/20 aerosol inhaler ropinirole 1 mg tablet 1 - 2 mg PO HS #90 tab-cap 05/04/20 fluticasone furoate 100 1 inh IH DAILY #30 each 06/24/20 mcg/actuation blister powder for inhalation metformin 1,000 mg tablet 1,000 mg PO DAILY #90 tab-cap 11/18/20 apremilast 30 mg tablet 30 mg PO BID 04/03/21 atorvastatin 80 mg tablet 80 mg PO DAILY #90 tab-cap 04/03/21 escitalopram oxalate 20 mg tablet 40 mg PO DAILY #180 tab 04/03/21 triamcinolone acetonide 0.1 % 1 applic TOPICAL BID 04/03/21 topical cream bupropion HCl 150 mg tablet,12 hr 150 - 300 mg PO DIRECTED #270 04/04/21 sustained-release tab Current Visit Medications: Current Medications Generic Name Dose Route Start Last Admin Trade Name Freq PRN Reason Stop Dose Admin Acetaminophen 0 mg 05/01/21 10:16 Acetaminophen 325 Mg Tab PO Q4H PRN PRN Al Hydrox/Mg Hydrox/Simethicone 30 ml 05/01/21 10:16 Mylanta Suspension 30 Ml Cup PO Q2H PRN PRN Albuterol Sulfate 2.5 mg 05/01/21 10:16 Albuterol 2.5 Mg/3 Ml Inh Soln Vial UPD Q2H PRN PRN Albuterol/Ipratropium 3 ml 05/01/21 18:00 05/03/21 05:57 Albuterol/Ipratropium 3 Ml Upd Vial UPD 3 ml Q6H REKHA Administration Benzonatate 200 mg 05/01/21 14:00 05/02/21 19:43 Benzonatate 200 Mg Cap PO 200 mg TID REKHA Administration Bupropion HCl 150 mg 05/01/21 20:00 05/02/21 19:43 Bupropion-Cr 150 Mg Tabcr PO 150 mg QPM REKHA Administration Bupropion HCl 300 mg 05/02/21 08:30 05/02/21 07:45 Bupropion-Cr 150 Mg Tabcr PO 300 mg DAILY REKHA Administration Chlorphenir/Hydrocodone Polistirex 5 ml 05/01/21 20:00 05/02/21 19:43 Tussionex Susp PO 5 ml BID REKHA Administration Dextrose 0 gm 05/01/21 15:27 Glucose 40% Oral Solution 15 Gm/37.5 Gm Tube PO DIRECTED PRN Dextrose/Water 0 gm 05/01/21 15:27 Dextrose 50%-Water 25 Gm/50 Ml Syr IVP DIRECTED PRN Dimethicone/Zinc Oxide 0 gm 05/01/21 10:16 05/01/21 22:32 Amee Protect Cream 142 Gm Tube TP 1 dose pk PRN PRN Administration Docusate Sodium 100 mg 05/01/21 10:16 Docusate Sodium 100 Mg Cap PO TID PRN PRN Docusate Sodium 100 mg 05/02/21 08:30 05/02/21 07:45 Docusate Sodium 100 Mg Cap PO Not Given DAILY REKHA Escitalopram Oxalate 40 mg 05/02/21 08:30 05/02/21 07:44 Escitalopram 20 Mg Tab PO 40 mg DAILY REKHA Administration Fluticasone Propionate 0 gm 05/01/21 10:22 Fluticasone Nasal Ophiem 16 Gm Btl NS DAILY PRN PRN allergy symptoms Sodium Chloride 500 mls @ 0 mls/hr 05/01/21 09:48 Saline 500ml Bag IV PRN PRN As Directed Sodium Chloride 1,000 mls @ 100 mls/hr 05/01/21 10:30 05/03/21 05:13 Saline 1000ml Bag IV 100 mls/hr INFUSION REKHA Administration Pantoprazole Sodium 80 mg/ 100 mls @ 10 mls/hr 05/01/21 15:00 05/03/21 09:27 Sodium Chloride IV 10 mls/hr INFUSION REKHA Administration IV Miscellaneous Supplies 1 each 05/01/21 10:00 Iv Access IV DIRECTED [facility] Insulin Aspart 0 units 05/01/21 17:00 05/03/21 09:29 Insulin Aspart 300 Units/3 Ml Pen SC Not Given 0800,1200,1700,2200 [facility] Protocol Lorazepam 0.5 mg 05/02/21 14:47 Lorazepam 0.5 Mg Tab PO QID PRN PRN Magnesium Hydroxide 30 ml 05/01/21 10:16 Milk Of Magnesia 30 Ml Cup PO DAILY PRN PRN Mometasone Furoate 0 puff 05/02/21 08:30 05/03/21 08:05 Mometasone 220 Mcg 14 Dose Inhaler IH 1 inh DAILY REKHA Administration Nystatin 0 gm 05/01/21 10:22 Nystatin Powder 60 Gm Jar TP BID PRN PRN fungal infection Pt's Own Apremilast 1 each 05/01/21 20:00 05/02/21 20:46 [Otezla] 30 Mg PO Not Given Tablet BID REKHA Polyethylene Glycol 17 gm 07/12/21 10:16 Polyethylene Glycol 3350 17 Gm Packet PO DAILY PRN PRN Constipation Ropinirole HCl 2 mg 05/01/21 22:00 05/02/21 21:06 Ropinirole 1 Mg Tab PO 2 mg HS REKHA Administration Sodium Chloride 0 ml 05/01/21 09:48 05/02/21 09:23 Normal Saline Flush 10 Ml Syr IVP 10 ml PRN PRN Administration Triamcinolone Acetonide 0 gm 05/02/21 08:30 05/02/21 21:30 Triamcinolone 0.1% Cr 15 Gm Tube TP Not Given BID REKHA PFSH Active Problems Active Problems: Problem Status Onset Code Colon cancer metastasized to multiple sites C18.9 Colon cancer C18.9 Former smoker Z87.891 COPD (chronic obstructive pulmonary disease) J44.9 Stage IV carcinoma of colon C18.9 Hx of malignant melanoma of skin Z85.820 Cough R05 Dyspnea R06.00 History of colonic polyps Z86.010 Lung nodules R91.8 Acute blood loss anemia D62 Melanoma ~03/2019 C43.9 TIMI (obstructive sleep apnea) G47.33 RLS (restless legs syndrome) G25.81 Diabetes type 2, controlled E11.9 Depression F32.9 Closed fracture of clavicle S42.009A Hemorrhage of rectum and anus 02/26/12 K62.5 Vertigo R42 Perioral dermatitis L71.0 Hyperlipidemia 05/13/13 E78.5 Family history of GI malignancy Z80.0 Essential hypertension 09/29/13 I10 Diabetes mellitus type 2 in nonobese 05/13/13 E11.9 Depressive disorder F32.9 Asthma J45.909 Medical History Medical History (Updated 05/03/21 @ 09:24 by John Buck) Asthma Depression Diabetes (~2001) type 2 History of colonic polyps Hx of adenomatous polyp of colon (~03/2012) Hyperlipidemia Hypertension Melanoma (~03/2019) excised from sole of right foot; performed at [facility]. Stage T3a- no adjuvant therapy Obesity Sleep apnea wears CPAP mask Surgical History Surgical History Colonoscopy - MAC (~04/04/12) 04/04/2012 (two adenomas removed one from transverse and one from sigmoid colon); subsequent colonoscopy 04/25/2015 showed no polyps Tobacco Smoking/Tobacco Use Status: Former Tobacco Use Tobacco: How many years used: 30 Passive smoking exposure: Yes Alcohol Alcohol Intake: current Alcohol intake frequency: a few times a week Alcohol type: beer Substance Use Substance use: Never Substance use type: does not use Vital Signs and Lab Results Vital Signs Most Recent Vital Signs in EMR: Most Recent Vital Signs Temp Pulse Resp BP Pulse Ox 36.0 C L 102 H 17 113/96 H 92 05/03/21 08:00 05/03/21 08:00 05/03/21 09:00 05/03/21 08:00 05/03/21 09:00 Point of Care Results Point of Care Results: Finger Stick Blood Glucose 97 05/03/21 09:29 Lab Results Result Diagrams: 05/03/21 06:20 05/02/21 06:05 Blood Type / Crossmatch: Patient ABO/Rh A Negative 05/01/21 09:05 05/01/21 Antibody Screen NEGATIVE 05/01/21 09:05 05/01/21 Crossmatch See Detail 05/01/21 09:05 05/01/21 Complete Blood Count: White Blood Count 7.77 10^3/uL (4.4-10.8) 05/02/21 06:05 05/02/21 Red Blood Count 3.52 10^6/uL (3.93-5.22) L 05/02/21 06:05 05/02/21 Hemoglobin 8.8 g/dL (11.2-15.7) L 05/03/21 06:20 05/03/21 Hematocrit 28.7 % (36.0-46.0) L 05/03/21 06:20 05/03/21 Platelet Count 387 10^3/uL (130-400) 05/02/21 06:05 05/02/21 Venous Blood Lactate 2.8 mmol/L (0.6-1.4) H* 05/01/21 11:00 05/01/21 Complete Metabolic Panel: Sodium Level 142 mmol/L (136-145) 05/02/21 06:05 05/02/21 Potassium Level 5.0 mmol/L (3.5-5.1) 05/02/21 06:05 05/02/21 Chloride Level 109 mmol/L (98-107) H 05/02/21 06:05 05/02/21 Carbon Dioxide Level 23.3 mmol/L (21.0-32.0) 05/02/21 06:05 05/02/21 Blood Urea Nitrogen 18 mg/dL (7-18) 05/02/21 06:05 05/02/21 Creatinine 1.0 mg/dL (0.55-1.02) 05/02/21 06:05 05/02/21 Estimated GFR/1.73 m2 54.97 (mL/min/1.73m2) 05/02/21 06:05 05/02/21 Magnesium Level 1.7 mg/dL (1.8-2.4) L 05/02/21 06:05 05/02/21 Calcium Level 8.5 mg/dL (8.5-10.1) 05/02/21 06:05 05/02/21 Albumin 1.8 g/dL (3.4-5.0) L 05/02/21 06:05 05/02/21 Glucose Level 199 mg/dL (74-106) H 05/02/21 06:05 05/02/21 Liver Function Panel: Alanine Aminotransferase (ALT/SGPT) 22 U/L (14-59) 05/02/21 06:05 05/02/21 Aspartate Amino Transf (AST/SGOT) 18 U/L (15-37) 05/02/21 06:05 05/02/21 Coagulation Panel: INR International Normalized Ratio 1.1 (0.9-1.1) 05/01/21 08:00 05/01/21 Prothrombin Time 11.2 sec (9.3-11.0) H 05/01/21 08:00 05/01/21 D-Dimer 2230 ng/mlFEU (<500) H 05/01/21 08:00 05/01/21 Cardiac Panel: Troponin I < 0.05 ng/mL (<0.06) 05/01/21 11:00 05/01/21 LV-Gqd-M-Type Natriuretic Peptide 1198 pg/mL (<300) H 05/01/21 07:22 05/01/21 Arterial Blood Gas: No Data to Display Venous Blood Gas: No Data to Display Pancreas Panel: No Data to Display Thyroid Panel: Thyroid Stimulating Hormone (TSH) 2.10 uIU/mL (0.36-3.74) 05/03/21 06:20 05/03/21 Infectious Disease: Coronavirus (COVID-19)(PCR) Negative (Negative) 05/01/21 08:05 05/01/21 Coronavirus 2019 Source Nasal/Nares 05/01/21 08:05 05/01/21 Blood Cultures: No Data to Display Toxicology Panel: No Data to Display Imaging and Studies Imaging and Studies EKG Summary: 05/01/21: Exam: Resting ECG Reason for Exam: sob Patient Location: E HR:97 bpm ECG Measurements Heart Rate 97 AXIS CA 135 P 69 QRSd 82 QRS 82 QT 324 T26 QTc 413 Conclusion Sinus rhythm...normal P axis, V-rate 60- 99 sinus rhythm at 97, normal axis, no STEMI, nondiagnostic EKG Echocardiogram Summary: 05/02/2021: EF 62%, no significant valvular lesions Pulmonary Function Summary: 05/02/21: Pulmonary Function Test Result Interpretation Spirometry: Somewhat poor patient effort, no evidence of obstructive airways disease. No bronchodilator testing was carried out Impression Somewhat poor patient effort, no evidence of obstructive airways disease. No bronchodilator testing was carried out Clinical Correlation therefore is recommended Anesthesia Assessment and Plan Anesthesia History Personal History: No History of Anesthesia Complications Family History: No Family History of Anesthesia Complications Exercise Tolerance Exercise Tolerance: Metabolic Equivalents<4 (SOB) Pertinent Negatives Pertinent Negatives: No Symptoms of GERD (Intermitent reflux, asymptomatic this morning. ), No Major Cardiovascular Symptoms or Complaints, No Major Pulmonary Symptoms or Complaints (Former smoker, cpap use NOC) and No History of CVA/TIA Cardiac & Pulmonary Exam Cardiac Exam: Normal S1/S2 Heart Sounds Pulmonary Exam: Rhonchi Present and Other (Baseline dyspnea, chronic cough) Airway Exam Known Difficult Airway: No Mallampati Class: 2 Mouth Opening: Normal (> 3cm) Thyromental Distance: Greater than 3 cm Neck Range of Motion: Full ROM Neck Circumference: Normal Teeth Condition: Normal Dentition ASA Classification ASA Score: ASA 4 Emergency Case?: No NPO Status NPO Status: NPO Clears >2 hours, Solids >8 hours Anesthesia Plan Resuscitation Status: Full Code Anesthesia Technique: General Anesthesia Airway Planned: Natural Airway Monitors Used: Standard Monitors
--- NOTE | 2021-05-03 13:02 | PHA.REVIEW ---
Pharmacy Admission Review - Admission Clinical Review (Last Updated 05/02/21 @ 15:27 by Araceli Domingo DO) Colon cancer metastasized to multiple sites (Acute) Former smoker (Acute) Stage IV carcinoma of colon (Acute) Hx of malignant melanoma of skin (Acute) Cough (Acute) Dyspnea (Acute) Lung nodules (Acute) Acute blood loss anemia (Acute) Hemorrhage of rectum and anus (Acute 02/26/12) Hyperlipidemia (Acute 05/13/13) Family history of GI malignancy (Acute) Essential hypertension (Acute 09/29/13) Diabetes mellitus type 2 in nonobese (Acute 05/13/13) cortisone Allergy (Intermediate, Unverified 05/01/21 07:10) burning rash ketoconazole Allergy (Intermediate, Unverified 05/01/21 07:10) SKIN RASH Sulfa (Sulfonamide Antibiotics) Allergy (Intermediate, Unverified 05/01/21 07:10) RASH dextromethorphan Allergy (Unknown, Unverified 05/01/21 07:10) HIVES guaifenesin Allergy (Unknown, Unverified 05/01/21 07:10) HIVES povidone-iodine Allergy (Unknown, Unverified 05/01/21 07:10) RED SKIN; REYES chlorhexidine Adverse Reaction (Unknown, Unverified 05/01/21 07:10) DOES NOT KNOW FOR SURE Resuscitation Status Full Code Height 4 ft 11 in Weight 77.111 kg - Renal Dosing Renal Dosing: BUN 18 mg/dL (7-18) D 05/02/21 06:05 Creatinine 1.0 mg/dL (0.55-1.02) D 05/02/21 06:05 Medications needing adjustments: Reviewed (she is taking 450mg of wellbutrin -- reduced dose/frequency is recommended in renal impairment, pt is also on 40mg of lexapro which is a high dose (20mg is usually the maximum) -- this combo has potential to lower seizure threshold especially with these higher doses and pt's poor renal fxn) List of meds needing interventions: eCrCl 38.13 ml/min - Anticoagulation Anticoagulation: Hgb 8.8 g/dL (11.2-15.7) L 05/03/21 06:20 Hct 28.7 % (36.0-46.0) L 05/03/21 06:20 Plt Count 387 10^3/uL (130-400) D 05/02/21 06:05 INR 1.1 (0.9-1.1) 05/01/21 08:00 Creatinine 1.0 mg/dL (0.55-1.02) D 05/02/21 06:05 DVT Prophylaxis: N/A Therapeutic Anticoagulation: N/A - Opiate Usage Evaluate Pain Scale/Pains Meds: N/A Scheduled Bowel Reg ordered if on Opiates?: Yes - Relevant Labs Sodium 142 mmol/L (136-145) 05/02/21 06:05 Potassium 5.0 mmol/L (3.5-5.1) 05/02/21 06:05 Chloride 109 mmol/L (98-107) H 05/02/21 06:05 Magnesium 1.7 mg/dL (1.8-2.4) L 05/02/21 06:05 Electrolytes, C-Reactive P, ESR: Reviewed (no potassium ordered, will cont to monitor) - DM Control DM Control: Glucose 199 mg/dL (74-106) H 05/02/21 06:05 Finger Stick Blood Glucose 97 Finger Stick Blood Glucose 97 Finger Stick Blood Glucose 97 Insulin Dosing: Reviewed (aspart per SS - sensitive) - Heart Failure/HI Heart Failure/HI: Troponin I < 0.05 ng/mL (<0.06) 05/01/21 11:00 NT-Pro-B Natriuret Pep 1198 pg/mL (<300) H 05/01/21 07:22 EF%, JESSICA's, B-Blockers, Diuretics: Reviewed - BP Control BP Control: Blood Pressure 109/68 Blood Pressure 105/63 Blood Pressure 113/96 Blood Pressure 117/65 Blood Pressure 110/58 Blood Pressure 96/52 Blood Pressure 96/52 Blood Pressure 89/52 Blood Pressure 90/58 If elevated: Reviewed - Qtc Review List meds needing interventions: QTc 413 on admission - IV to PO Switch IV Medications: Reviewed - Home Meds Home Med List reviewed: Reviewed Relevent Home Meds Not ordered & why?: Not ordered: atorvastatin, losartan, metformin (ss insulin active) - Current meds Current Medication Order Review: Reviewed - Comments Comments/Follow Ups: protonix gtt continues, EGD today, Hb stable at 8.8, Iron panel pending
--- NOTE | 2021-05-03 14:15 | BOWEL_PTH ---
PATIENT: Jerica Quinteros LOC: U#:[id number] AGE/SX: 71/F ROOM: 214 RE05/01/[address]: John Buck : 1950 BED: A DIS: 05/05/2021 SPEC #: [id number] RECD: 05/03/21 18:04 STATUS: CICI REQ #: [id number] LYLA: 05/03/21 14:[address]: John Buck DEPT: Surgical Specimen RECD BY: Chelsie Motta ENTERED: 05/03/21 18:05 SP TYPE: Bowel OTHR DR: David Ronquillo MD Tissues: 1 - BIOPSY BOWEL Procedures: GROSS AND MICRO LEVEL 4 IMMUNOPEROXIDASE STAIN Comments: [id number] (PLEASE [place])
--- NOTE | 2021-05-03 14:37 | CMPROGNOTE_ITS ---
Care Management Progress Note S/O: Jerica was lying in bed, her daughter and significant other at her bedside. AD was reviewed and provided, Jerica stated her daughter would be her agent. Jerica reported she was awaiting results of her colonoscopy, CM continues to follow. A: 71 year old female admitted to [facility] 05/01/21 for anemia, hypotension P: Jerica continues to be closely monitored and treated; anticipate she will return home with possible new VNA supports and close outpatient follow up, awaiting colonoscopy results at this time.
--- NOTE | 2021-05-03 14:56 | W.ANESPOSTOP ---
Postoperative Evaluation Date, Time and Location Date Performed: 05/03/21 Time Performed: 14:55 Patient Location: PACU Vital Signs Most Recent Imported Vital Signs: Most Recent Vital Signs Temp Pulse Resp BP Pulse Ox 36.2 C L 81 17 110/59 L 96 05/03/21 14:50 05/03/21 14:50 05/03/21 14:50 05/03/21 14:50 05/03/21 14:50 Pain Score Most Recent Pain Score: Most Recent Pain Score Pain Level 0 05/03/21 14:50 Assessment Mental Status: Awake (Alert & Oriented to Patient Baseline) Airway and Respiratory Function: Patent airway with normal (patient baseline) respiratory exam Cardiovascular Function: Hemodynamically Stable Hydration Status: Adequately Hydrated Nausea & Vomiting: No Nausea or Vomiting Pain: Pt. Denies Any Pain Peripheral Nerve Block: Patient did not receive a nerve block
[2021-05-03] MEDS: Omnipaque 350 MG/ML 100 ML BTL IJ (17:19)
[2021-05-03 17:25] LABS: CEA <2.0 ng/mL (See Note)
--- NOTE | 2021-05-03 17:57 | DI.VRAD_ITS ---
PROCEDURE INFORMATION: Exam: CT Head With Contrast Exam date and time: 05/03/2021 4:20 PM Age: 71 years old Clinical indication: Condition or disease; Cancer; Metastatic or secondary malignancy of brain TECHNIQUE: Imaging protocol: Computed tomography of the head with intravenous contrast. Contrast material: [id number]; Contrast volume: 100 ml; Contrast route: INTRAVENOUS (IV); COMPARISON: No relevant prior studies available. FINDINGS: Brain: Unremarkable white matter. No mass effect. No abnormal enhancing lesions. Cerebral ventricles: Unremarkable. No ventriculomegaly. Bones/joints: Unremarkable. No acute fracture. Paranasal sinuses: Visualized sinuses are unremarkable. No fluid levels. Mastoid air cells: Visualized mastoid air cells are well aerated. Soft tissues: Unremarkable. IMPRESSION: No CT evidence of intracranial metastatic disease. If there is persistent clinical concern, MR is recommended. Dictated and Authenticated by: Bernard Hernandez MD. Ordering:EMILIANO Charles MD
[2021-05-03] MEDS: Polyethylene Glycol 3350 17 GM PACKET PO (20:33)
[2021-05-03] MEDS: buPROPion-CR 150 MG TABCR PO (20:34)
[2021-05-03] MEDS: Benzonatate 200 MG CAP PO (20:34)
[2021-05-03 20:46] LABS: Iron 19 ug/dL (50-170); Total Iron Binding Capacity 183 ug/dL (250-450); Transferrin Sat 10 % (15-50)
[2021-05-03] MEDS: rOPINIRole 1 MG TAB 2 MG PO (21:29)
[2021-05-03] MEDS: Insulin Aspart 300 UNITS/3 ML PEN SC (21:30)
--- NOTE | 2021-05-03 23:32 | W.COLOREPORT ---
Date of service: 05/03/21 Time of Service: 23:32 Colonoscopy Report Date of procedure: 05/03/21 Pre-op diagnosis general: Obstructing: Mass Post-op diagnosis procedure note: other (99% of obstruction of the sigmoid colon-most likely this is metastatic melanoma. Path is pending at this time) Procedure: Flex sig with biopsies Surgeon: Araceli Domingo Anesthesia Type: General:No Airway Estimated blood loss (mL): 1 Pathology: other Complications: None Disposition: PACU Prep: Miralax/Dulcolax Procedure Description: After informed consent was obtained the patient was taken to the procedure room and placed in a left decubitous position. Monitors were applied and a time out was done. The patients name, date of , procedure, allergies to medications and metal in their body was reviewed. The patient was then sedated. Once sedated and comfortable a rectal exam was done. External exam shows external hemorrhoids not acutely inflamed. Internal exam revealed a normal sphincter tone and no palpable masses. The scope was then introduced and retrofelexed. no internal hemorrhoids were identified. The prep was good. The scope was then slowly retracted over 4 minutes back into the rectum. The previously lubricated Olympus scope was inserted into the rectum and insufflation is begun. She has mild diverticular disease the portion of the sigmoid I can visualize. There is no signs of active bleeding or infection. At 40-45 cm I do encountered the obstructing lesion that was noted on CT. It has not does not have the usual characteristics of a adenocarcinoma. And it is not black in coloration. Multiple biopsies are taken. Minimal bleeding is noted. Cannot pass the scope through the obstruction. I cannot even visualize any lumen or opening through this obstructing tumor. There is no signs of heavy bleeding. The mucosa is pink and the same color pattern is no surrounding healthy mucosa. Multiple biopsies are obtained. There is no heavy bleeding noted. The scope was then withdrawn. Patient tolerated the procedure well without complication. The document was created with voice activated software and may contain errors the scope was removed and the patient was woken up and taken back to Same day surgery in stable condition. The patient tolerated the procedure well and there were no immediate complications. Follow up: The patient should follow up in [] years unless they develop changes in bowel habits or other new gastrointestinal complaints.
--- NOTE | 2021-05-03 23:40 | PGE_ITS ---
Date of Service Date of service: 05/03/21 Time of Service: 18:30 Subjective Subjective Interval history since last seen: She is doing okay after her recent flex sig. She is having no pain. She says she is hungry. She says she does not find it different difficult for her to eat. She has had dramatic weight loss in the last few months. I did discuss her case with Dr. Salina Kelley at [facility] [place] colorectal surgery. She does not feel that the patient would be best served with an operation. She feels if there is any help for treating her with her cancer would be from chemical oncology. The patient has multiple areas where there is large tumor burden causing obstruction there is also a 7cm mass near the branching of the josy into the left mainstem bronchus. Anesthesia is very concerned that this could be injured with tube placement and cause bleeding or perforation. Our anesthesia department is hesitant to provide services because of the fear that the mass could be eroding into the josy and could cause bleeding and extensive damage with any intubation. Patient has quite a heavy cough/laryngospasm possibly from the mass eroding into the josy/mass-effect on the josy. She is not coughing up blood. Again with the discussion of colorectal did not feel they have anything surgical to offer the patient and her prognosis given her heavy tumor burden is abysmal. -I am not completely certain how she is moving her bowels. There is absolutely no lumen visible on CT scan. -In giving chemo it would take at least 3 to 6 weeks before noticing any decrease in tumor burden. I contacted my colleagues at [facility] rash on her pathology. But I do not think this is an adenocarcinoma just from looking at it and how the cancer has progressed. I do feel this is a melanoma. Dr. Kelley this as well. I did review the findings at the time the flexible sigmoidoscope and biopsies. She needs to be on MiraLAX twice to 4 times a day to keep her stools soft. She should continue to eat high-protein foods. And protein supplements. I talked with her about the findings at the time of endoscopy and recommendations from colorectal therapy. Dr. Kelley did not feel the patient was a surgical candidate nor that surgery would provide any benefit or extend her life and would only create more complications and problems. they feel that palliative care is in the patient's best interest. I did contact Alina Gabriel and she will see the patient within the next 24 hours. I did share her social history with Dr. Gabriel. I talked with patient, her significant other and one of her daughters. I did discuss my findings and conversations with other physicians. I do feel it is her best interest to proceed with hospice at this time and maximize the quality of life that she has lost. The disease does appear to be progressing very rapidly. And she is incredibly heavy tumor burden. Dr. Alina Gabriel will see her tomorrow. -Patient can have whatever she wants to eat. I would recommend a very soft low fiber diet. She should have MiraLAX 2-4 times a day to maintain liquid stools unfortunately patient is going to become completely obstructed very soon because of the tumor that is pressing on her josy she is not really a candidate for a any type of anesthesia at our facility and would need to go down to [facility] to have a decompressing PEG placed. She is also having significant coughing still. Respiratory is going to try to institute some more maneuvers to ameliorate the situation 60 Minutes is spent with patient and her family tonjuarez tonjuarez Objective Last Vital Signs Temp 36.9 C 05/03/21 21:00 Pulse 104 H 05/03/21 21:00 Resp 17 05/03/21 21:00 BP 101/66 05/03/21 21:00 Pulse Ox 91 L 05/03/21 21:00 Laboratory Results - last 24 hr 05/03/21 05/03/21 05/03/21 06:20 06:20 06:20 Hgb 8.8 L Hct 28.7 L Iron 19 L TIBC 183 L Transferrin % Sat 10 L Lactate Dehydrogenase TSH 2.10 05/03/21 06:20 Hgb Hct Iron TIBC Transferrin % Sat Lactate Dehydrogenase 175 TSH
[2021-05-04] MEDS: Albuterol/Ipratropium 3 ML UPD VIAL UPD ×2 (05:56→11:30)
[2021-05-04 07:21] VITALS: BP 100/66; PULSE 84; RESP 17; TEMP 36.5; O2SAT 93
[2021-05-04] MEDS: Mometasone 220 MCG 14 DOSE INHALER IH (09:01)
[2021-05-04] MEDS: Polyethylene Glycol 3350 17 GM PACKET PO ×2 (09:40→20:19)
[2021-05-04] MEDS: Docusate Sodium 100 MG CAP PO (09:41)
[2021-05-04] MEDS: Benzonatate 200 MG CAP PO ×3 (09:41→20:18)
[2021-05-04] MEDS: buPROPion-CR 150 MG TABCR 300 MG PO (09:41)
[2021-05-04] MEDS: Escitalopram 20 MG TAB 40 MG PO (09:41)
--- NOTE | 2021-05-04 10:25 | W.PM.DS.N ---
Date of service: 05/05/21 Time of Service: 09:31 DS: Diagnosis Discharge Diagnosis (1) Acute blood loss anemia: Status: Acute (2) Colon cancer metastasized to multiple sites: Status: Ruled-out (3) Partial obstruction of colon: Status: Chronic (4) Hx of malignant melanoma of skin: Status: Chronic Discharge Plan Disposition Patient Disposition: HOME W/HOME HEALTH SERVICE Condition: Fair Discharge Details Reason For Visit: Anemia,Hypotension Admit Date/Time: 05/01/21 09:48 Admit Provider: John Buck Attending Provider: John Buck Primary Care Provider: [facility] Hospital Course: This is a 71 year old female with a complex past medical history including malignant melanoma, adenomatous colon polyps, hypertension, diabetes, former smoker who presented to the ED with a 3 week history of cough. Her work-up including chest 2 Views and lab work. Chest x-ray showed multiple noncalcified noncavitated lung nodules in both lungs with no pleural effusion. Largest of these nodules is in the right hilum measuring 5.5 x 4.5 cm. The largest in the left lung measured 4 x 4 cm. She was also found to be anemic with a hemoglobin of 7.2 g with an increased RDW of 17 and normal white count and normal platelet count. She has a strong family history of colon cancer including her father and her sister both of which of colon cancer. Patient herself was diagnosed with adenomatous polyps of her transverse and sigmoid colon during a colonoscopy April 04, 2012 @ [facility], Dr. Edgard Covington. Follow up c-scope was done 04/25/[address] Qing Pressley and showed no colon polyps. Rectal exam in the ER revealed heme positive stools. Patient was typed and cross matched and given 1 unit of PRBC after initial fluid resuscitation w/ 2 L normal saline. Patient also was given Cefipime presumptively for pneumonia although patient has been afebrile and w/out leukocytosis. Patient was hypotensive on admission w/ BP 79/48 to 90/47 but since the 2 liters of saline and 1 unit PRBC she stabilized. She was admitted to ICU for treatment of blood loss with hypotension, GI bleeding and workup of lung nodules/probable lung mets. She underwent whole body scanning including CT chest, abdomen and pelvis w/ oral and iv contrast to look for source of primary and surgical consultation placed regarding her GI bleeding and hx of tubular adenomas. Scan ultimately showed widely disseminated cancer. It does show a near obstructing mass in the sigmoid colon that has spread out to the adjacent soft tissues throughout the abdomen and eroding through into the subcutaneous tissues and into the buttocks. Dr Edge discussed her case with Dr. Salina Kelley [place] [facility] [place]. She does not feel that the patient would be best served with an operation. She feels if there is any help for treating her with her cancer would be from chemical oncology. The patient has multiple areas where there is large tumor burden causing obstruction there is also a 7cm mass near the branching of the josy into the left mainstem bronchus. Anesthesia was concerned that this could be injured with tube placement and cause bleeding or perforation.. Again with the discussion of colorectal did not feel they have anything surgical to offer the patient and her prognosis given her heavy tumor burden is abysmal. Her case was discussed with DR Stephenson who was consulted and after reviewing her record and discussion with the patient, it was decided that she would be discharged to home on hospice services. case management has been following and plan is to be discharged on 05/05 after durable medical equipment arrives and can be set up. discharge discussed with DR Buck Home Meds and New Rx's Prescriptions: New lidocaine HCl 4 % (40 mg/mL) Solution 5 ml NEB DIRECTED PRN (Reason: cough) Qty: 0 RF: 0 No Action docusate sodium [Colace] 100 mg capsule 100 mg PO DAILY Qty: 90 RF: 3 losartan [Cozaar] 100 mg tablet 100 mg PO DAILY Qty: 90 RF: 4 albuterol sulfate 90 mcg/actuation HFA aerosol inhaler 1 - 2 puff IH QID PRN (Reason: shortness of breath or wheezing) Qty: 18 RF: 4 ropinirole 1 mg tablet 1 - 2 mg PO HS Qty: 90 RF: 4 Otezla 30 mg tablet 30 mg PO BID RF: 0 triamcinolone acetonide 0.1 % cream 1 applic topical BID RF: 0 escitalopram oxalate [Lexapro] 20 mg tablet 40 mg PO DAILY Qty: 180 RF: 4 bupropion HCl 150 mg tablet sustained-release 12 hr 150 - 300 mg PO DIRECTED Qty: 270 RF: 4 aspirin [Aspirin Low-Strength] 81 MG tablet,chewable 1 tab PO DAILY RF: 0 (DME) Blood Glucose Test 1 EACH strip 1 ea Miscellaneous DAILY Qty: 100 RF: 4 nystatin (bulk) 1 EACH powder 1 ea Miscellaneous DAILY Qty: 60 RF: 2 calcium carbonate-vit D3-min 600 mg calcium- 400 unit tablet 1 tab PO DAILY RF: 0 fluticasone propionate 50 mcg/actuation spray,suspension 1 spray NS DAILY PRN (Reason: allergy symptoms) Qty: 1 RF: 6 nystatin 100,000 unit/gram powder 1 applic TP BID PRN (Reason: fungal infection) Qty: 60 RF: 2 Arnuity Ellipta 100 mcg/actuation blister with device 1 inh IH DAILY Qty: 30 RF: 5 metformin [Glucophage] 1,000 mg tablet 1,000 mg PO DAILY Qty: 90 RF: 4 atorvastatin 80 mg tablet 80 mg PO DAILY Qty: 90 RF: 4 Discharge Instructions Instructions: Colorectal Cancer (DC) Additional Instructions: Take MiraLAX twice to 4 times a day to keep stools soft. Continue to eat high-protein foods, and protein supplements. Medication per hospice team. Stand Alone Forms: Nursing Discharge Form Referrals: [facility] [Outside] (Oncology appt with Dr Myke Connor in [facility] Phone number [phone]) Activity:: Activity as Tolerated Equipment/Supplies:: No Equipment Needed Diet:: As Tolerated Discharge Orders Discharge Orders: Discharge Order (Routine); Ordered 05/05/21 Ordered By: Hannah Zamora DS: Summary Time Spent with Patient providing and/or coordinating discharge services: Greater than 30 minutes Status at Discharge Functional status at discharge: independent ambulation Overall status at discharge: patient is not back to baseline Mental Status: mental status grossly normal Speech and Movement: speech and movement normal Mood: congruent mood Affect: normal affect Exam Narrative Exam Narrative: Alert/oriented, pleasant, in no distress or discomfort Lungs: clear Heart: RRR Abdomen: bowel sounds present but quiet, soft and non-tender to palpation Extremities: no edema Psych Mental Status: mental status grossly normal Speech and Movement: speech and movement normal Mood: congruent mood Affect: normal affect DS: Data Vitals/I&O Vitals and I&O: Vital Signs Temperature 36.5 C 05/04/21 07:21 Temperature Source Temporal Artery Scan 05/04/21 07:21 Pulse 84 05/04/21 07:21 Pulse Rhythm Regular 05/04/21 03:47 Pulse 80 05/03/21 11:00 Respiratory Rate 17 05/04/21 07:21 Respiratory Effort Non-Labored 05/04/21 03:47 Respiratory Depth Normal 05/04/21 03:47 Respiratory Pattern Normal 05/04/21 03:47 Blood Pressure 100/66 05/04/21 07:21 Blood Pressure Mean 73 05/03/21 10:00 Blood Pressure Position Sitting 05/02/21 20:06 Pulse Oximetry 93 05/04/21 07:21 Respiratory End-tidal CO2 24 05/03/21 14:50 Oxygen Delivery Method Room Air 05/04/21 07:21 Oxygen Flow Rate 0 05/04/21 07:21 Pain Level 0 05/04/21 07:21 Intake & Output 05/03/21 05/03/21 05/04/21 11:59 23:59 11:59 Intake Total 1893.334 / 3886.667 1993.333 / 3886.667 Output Total 1100 / 1100 Balance 793.334 / 2786.667 1993.333 / 2786.667 Weight 77.111 kg 79 kg Intake: IV 1893.334 / 2836.667 943.333 / 2836.667 Oral 1050 / 1050 Output: Urine 200 / 200 Stool 900 / 900 Other: Urine Color Pale Yellow Urine Appearance Clear Clear Clear Stool Occult Blood Negative Stool Size Moderate Moderate Stool Characteristics Liquid Formed Brown Brown Emesis Description None Voiding Methods Bedside Commode Data Completed and Pending Labs on day of discharge: Labs from last 24 hours 05/03/21 05/03/21 06:20 06:20 Iron 19 L TIBC 183 L Transferrin % Sat 10 L Carcinoembryonic Ag <2.0 Preliminary micro results at discharge 05/01/21 08:00 Blood Culture - Preliminary Blood NO GROWTH 72 HOURS 05/01/21 08:28 Blood Culture - Preliminary Blood NO GROWTH 48 HOURS [facility] Medical History (Updated 05/05/21 @ 08:02 by Alina Stephenson MD) Asthma Depression Diabetes (~2001) type 2 Encounter for hospice care discussion Goals of care, counseling/discussion History of colonic polyps Hx of adenomatous polyp of colon (~03/2012) Hyperlipidemia Hypertension Melanoma (~03/2019) excised from sole of right foot; [place] [facility] [place] Stage T3a- no adjuvant therapy Obesity Palliative care patient Sleep apnea wears CPAP mask Surgical History (Updated 05/04/21 @ 22:20 by Alina Stephenson MD) Colonoscopy - MAC (~04/04/12) 04/04/2012 (two adenomas removed one from transverse and one from sigmoid colon); subsequent colonoscopy 04/25/2015 showed no polyps History of excision of lesion Family History (Updated 05/05/21 @ 07:49 by Alina Stephenson MD) Mother Alcohol abuse in remission Heart disease Hyperlipidemia Melanoma Father Diabetes Alcohol abuse Hyperlipidemia Colon cancer Melanoma Sister , age 61 from colon cancer Colon cancer FAMILY HISTORY Diabetes Aortic aneurysm Depression Heart disease Suicide Brother Suicide Brother Suicide Brother Suicide Daughter No problems noted. Daughter No problems noted. Son No problems noted. Other Murder Social History (Updated 05/05/21 @ 07:45 by Alina Stephenson MD) Smoking/Tobacco Use Status: Former Tobacco Use Quit Date: 10/21/18 Tobacco: How many years used: 50 Smoking risk assessment performed?: Yes Alcohol Intake: current Alcohol Intake frequency: a few times a week Alcohol type: beer Drug use: Never Substance use type: does not use Caregiver/Support person: Yes (significant other, Rojas and daughter Samia) Household members: significant other Housing: house Number of Children: 3 number of grandchildren: 4 Communication Needs: Corrective Lenses Education Level: high school Do you need help understanding health information?: Often 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; 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 Pets and animals: Yes Pets and animals: cat(s) Current gender identity: female and decline to answer What is your relationship status?: living with partner How often do you talk on the phone with friends or family?: three or more times per week How often do you get together with friends or relatives?: twice per week Panel score (0-1 are the most socially isolated patients): 2 What type of physical activity do you participate in: walking and sedentary lifestyle Duration: 15-30 minutes/day Briseyda/Scientology: No preference Special briseyda needs: No Working smoke detector in home: Yes Fire extinguisher in home: Yes Do you feel safe at home: Yes Do you feel safe in your relationship?: Yes Additional Social history: Lives with partner, Rojas. He is very overwhelmed by her diagnosis of metastatic cancer. Daughter Samia on extended FMLA as of this diagnosis. House is currently undergoing rehab. No running water. Renovations much more extensive than planned. House cluttered due to renovations, but family can reconfigure rooms for Jerica to return home with hospital bed in place. Jerica's mother, age 92, has already lost 4 children. Samia to inform her of Jerica's diagnosis prior to Jerica's discharge.
[2021-05-04 11:30] VITALS: RESP 1; RESP 8
--- NOTE | 2021-05-04 11:33 | PGE_ITS ---
Date of Service Date of service: 05/04/21 Time of Service: 11:33 Assessment and Plan Assessment and plan (1) Acute blood loss anemia: Status: Acute Assessment and plan: with iron deficiency. hemoglobin stable after transfusion of 2 units of PRBC venofer 200 mg IVPB today (2) Colon cancer metastasized to multiple sites: Status: Acute Assessment and plan: plan to discharge home on hospice tomorrow. (3) Partial obstruction of colon: Status: Suspected Assessment and plan: MiraLAX twice to 4 times a day to keep her stools soft. continue to eat high-protein foods. And protein supplements (4) Hx of malignant melanoma of skin: Status: Acute Assessment and plan: records from [facility] indicate that she had complete excision of the lesion from her foot and had negative lymph nodes. She has been going for followup every 6 months at [facility] w/ Dr. Myke Connor, surgical oncologist. (5) Discharge planning issues: Status: Acute Assessment and plan: seen by palliative, plan is to discharge home on hospice when durable medical equipment delivered. anticipate discharge tomorrow. case management following discussed with DR Bangura Subjective Subjective Patient reports: no new complaints, tolerating liquids well, tolerating a regular diet, bowel movement and afebrile Interval history since last seen: patient sitting up on edge of bed, working on personal paperwork. denies any c/o. hoping for discharge to home on hospice tomorrow. Exam Narrative Exam Narrative: Alert/oriented, sitting on edge of bed in no distress or discomfort Lungs: clear, respirations even and unlabored Heart: RRR Abdomen: bowel sounds present, soft and non-tender to palpation Extremities: no edema skin: no rashes or lesions HEENT: oral mucosa slightly dry, no exudates, head atraumatic, eyes normal in appearance psyche: normal mood and affect. Objective Last Vital Signs Temp 36.5 C 05/04/21 07:21 Pulse 84 05/04/21 07:21 Resp 17 05/04/21 07:21 BP 100/66 05/04/21 07:21 Pulse Ox 93 05/04/21 07:21 Laboratory Results - last 24 hr 05/03/21 05/03/21 06:20 06:20 Iron 19 L TIBC 183 L Transferrin % Sat 10 L Carcinoembryonic Ag <2.0
--- NOTE | 2021-05-04 12:30 | W.PM.PROGNOT ---
Date of Service Date of service: 05/04/21 Time of Service: 09:30 Assessment and Plan Assessment and plan (1) Colon cancer: Status: Chronic Assessment and plan: -Postoperative day #1 status post flexible sigmoidoscopy with near complete obstruction of the colonic lumen by mass, likely neoplastic. Multiple biopsies taken via cold forceps, pathology pending. -Discussed with [facility] colorectal surgery yesterday; unfortunately, there is no role for palliative surgical intervention given extent of disease. -Palliative care consult appreciated, patient to be going home on hospice tomorrow. -Continue supportive care. Qualifiers: Colon location: sigmoid Qualified Code(s): C18.7 - Malignant neoplasm of sigmoid colon (2) Acute blood loss anemia: Status: Acute Assessment and plan: Continue to trend hemoglobin, and transfuse PRN unless family and patient transition to SPORTS ADMINISTRATOR. Subjective Subjective Patient reports: no new complaints, voiding w/o difficulty and no bowel movement Exam Const General: cooperative, comfortable and no acute distress Orientation: alert, awake and oriented x3 Resp Effort & Inspection: normal respiratory effort and able to speak in complete sentences GI Inspection: normal to inspection Palpation: soft, not firm and no guarding Percussion: tympanic to percussion Neuro General: patient alert, patient awake and patient oriented x3 Psych Appearance: grossly normal Mental Status: mental status grossly normal Objective Last Vital Signs Temp 97.7 F 05/04/21 07:21 Pulse 84 05/04/21 07:21 Resp 17 05/04/21 07:21 BP 100/66 05/04/21 07:21 Pulse Ox 93 05/04/21 07:21 Laboratory Results - last 24 hr 05/03/21 05/03/21 06:20 06:20 Iron 19 L TIBC 183 L Transferrin % Sat 10 L Carcinoembryonic Ag <2.0
[2021-05-04] MEDS: IRON SUCROSE COMPLEX 200 MG in Normal Saline 100 ML 400 MG IVPB (12:36)
--- NOTE | 2021-05-04 15:47 | PCNE_ITS ---
Date of service: 05/04/21 Time of Service: 06:57 History of Present Illness History of Present Illness Chief Complaint: new diagnosis of widely metastasized cancer, likely melanoma Narrative: I met with Jerica in her room. She was sitting up at the side of the bed. Her primary nurse Cindy Lawrence was present for some of my visit. Jerica is still trying to make sense of what is going on. She came in with a cough and shortness of breath as her primary medical complaints. She was found to be anemic with a Hgb of 7.2. She had imaging that showed widely metastatic disease. Given her anemia and strong family history of colon cancer, initially she was thought to have that as well. She underwent colonscopy with Dr Domingo who noted a complete blockage of her colon due to this cancerous mass; she stated in her note that she was surprised that Jerica was still able to produce stool. Dr Domingo's clinical judgement was that this was not colon cancer but likely her melanoma that had recurred. Jerica was diagnosed 3 years ago with a plantar m elanoma, had excision but no chemo or radiation. Note that both her parents had melanoma and that she is a red head with very fair skin. (Though her initial lesion was plantar). Jerica had been told prior to my meeting her that this was a terminal diagnosis. She is still coming to terms with this. She is very stoic. She is grateful for the good life she has had up until now. She was one of 8 children, 4 of whom have already . Her mother remains alive and well at 92. She has 3 children. All are aware of her diagnosis. She has a long-term SO, Rojas. He is really struggling with her diagnosis, and given this Jerica has asked that Samia be her pirmary caregiver while she is on hospice. Samia has already consulted her HR department about FMLA. I spoke with Jerica's daughter and health care agent, Samia Coto, about her mother's desire to go home on hospice. Samia was worried that her mother's current lack of running water in the home would preclude her from this program. I reassured her it would not. Consults Consult date: 05/04/21 Requesting physician: Araceli Domingo Assessment and Plan Assessment and plan (1) Melanoma: Status: Acute Assessment and plan: Likely source of her multiple metastatic lesions, including occluding large lesion in colon, multiple lesions in lung including large lesion near josy, spleen, liver, kidneys, lymph nodes throughout her body. Her path specimen results are still pending. She would like genetics done on the specimen if possible, as both her parents also had melanoma. Wants her children to have information, and her 4 granddaughters. (2) Partial obstruction of colon: Status: Chronic Assessment and plan: We discussed danger signs of having her tumor progress to full obstruction. Advised that if she stops producing any stool, she needs to call hospice team jose luis. If she develops nausea and vomiting, she should do the same. She will probably then need aggressive pain management, and may need to return to hospital level of care at the end of her life. (3) Former smoker: Status: Acute (4) Hx of malignant melanoma of skin: Status: Chronic Assessment and plan: Per Dr Domingo's clinical assessment, this widespread aggressive tumor burden likely is from recurrent melanoma, not colon cancer. She has risk factors and family history for both. Will see what final path shows. (5) Cough: Status: Chronic Assessment and plan: very much helped by inhalation of lidocaine she was able to sleep through the night for the first time in months prior to my visit will continue medication at home (6) Dyspnea: Status: Acute Qualifiers: Dyspnea type: shortness of breath Qualified Code(s): R06.02 - Shortness of breath (7) Lung nodules: Status: Acute (8) Acute blood loss anemia: Status: Acute (9) Melanoma: Status: Chronic (10) Goals of care, counseling/discussion: Status: Acute Assessment and plan: We filled out a COLST form. She wants to go home on hospice. Given the risk of bowel perforation, she may need to have aggressive pa in management at the end of her life. Will monitor carefully through hospice team. (11) Encounter for hospice care discussion: Status: Acute Assessment and plan: Will be discharge home on hospice. Team is aware. Orders have been signed. (12) Palliative care patient: Status: Acute Review of Systems Constitutional Constitutional: Reports fatigue, Reports lethargy, Reports malaise, Reports poor appetite, Reports weakness and Reports weight loss Eyes Eyes: Reports requires corrective lenses ENT Ears, Nose, Mouth, and Throat: Reports dizziness and Reports disequilibrium Cardiovascular Cardiovascular: Reports rapid heart rate, Reports lightheadedness, Reports dyspnea and Reports dyspnea on exertion Respiratory Respiratory: Reports cough, Reports pain with cough, Reports dyspnea and Reports dyspnea on exertion Gastrointestinal Gastrointestinal: Reports abdominal pain, Reports bloating, Reports change in bowel habits, Reports early satiety, Reports fecal incontinence and Reports diarrhea Genitourinary Genitourinary: Reports urinary incontinence Musculoskeletal Musculoskeletal: Reports atrophy, Reports loss of height and Reports muscle weakness Integumentary/Breasts Skin/Breast: Reports dry skin and Denies new lesions Neurologic Neurologic: Reports dizziness, Reports disequilibrium and Reports weakness Psychiatric Psychiatric: Denies anxiety and Reports difficulty concentrating Endocrine Endocrine: Reports fatigue Hematologic/Lymphatic Hematologic/Lymphatic: Reports easy bruising [facility] Medical History (Updated 05/05/21 @ 08:02 by Alina Stephenson MD) Asthma Depression Diabetes (~2001) type 2 Encounter for hospice care discussion Goals of care, counseling/discussion History of colonic polyps Hx of adenomatous polyp of colon (~03/2012) Hyperlipidemia Hypertension Melanoma (~03/2019) excised from sole of right foot; [place] [facility] [place] T3[place]- no adjuvant therapy Obesity Palliative care patient Sleep apnea wears CPAP mask Surgical History (Updated 05/04/21 @ 22:20 by Alina Stephenson MD) Colonoscopy - MAC (~04/04/12) 04/04/2012 (two adenomas removed one from transverse and one from sigmoid colon); subsequent colonoscopy 04/25/2015 showed no polyps History of excision of lesion Family History (Updated 05/05/21 @ 07:40 by Alina Stephenson MD) Mother Alcohol abuse in remission Heart disease Hyperlipidemia Melanoma Father Diabetes Alcohol abuse Hyperlipidemia Colon cancer Melanoma Sister , age 61 from colon cancer Colon cancer FAMILY HISTORY Diabetes Aortic aneurysm Depression Heart disease Suicide Brother Suicide Brother Suicide Brother Suicide Daughter No problems noted. Daughter No problems noted. Son No problems noted. Other Murder Social History (Updated 05/05/21 @ 07:45 by Alina Stephenson MD) Smoking/Tobacco Use Status: Former Tobacco Use Quit Date: 10/21/18 Tobacco: How many years used: 50 Smoking risk assessment performed?: Yes Alcohol Intake: current Alcohol Intake frequency: a few times a week Alcohol type: beer Drug use: Never Substance use type: does not use Caregiver/Support person: Yes (significant other, Rojas and daughter Samia) Household members: significant other Housing: house Number of Children: 3 number of grandchildren: 4 Communication Needs: Corrective Lenses Education Level: high school Do you need help understanding health information?: Often 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; 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 Pets and animals: Yes Pets and animals: cat(s) Current gender identity: female and decline to answer What is your relationship status?: living with partner How often do you talk on the phone with friends or family?: three or more times per week How often do you get together with friends or relatives?: twice per week Panel score (0-1 are the most socially isolated patients): 2 What type of physical activity do you participate in: walking and sedentary lifestyle Duration: 15-30 minutes/day Briseyda/Congregational: No preference Special briseyda needs: No Working smoke detector in home: Yes Fire extinguisher in home: Yes Do you feel safe at home: Yes Do you feel safe in your relationship?: Yes Additional Social history: Lives with partner, Rojas. He is very overwhelmed by her diagnosis of metastatic cancer. Daughter Samia on extended FMLA as of this diagnosis. House is currently undergoing rehab. No running water. Renovations much more extensive than planned. House cluttered due to renovations, but family can reconfigure rooms for Jerica to return home with hospital bed in place. Jerica's mother, age 92, has already lost 4 children. Samia to inform her of Jerica's diagnosis prior to Jerica's discharge. Exam Narrative Exam Narrative: General: pleasant, in no distress or discomfort, teary when talking about her children Skin: red-head, fair, multiple freckles, sun-damage, but no lesions visible c/w new melanoma lesion Lungs: clear, distant, no increased WOB Heart: RRR, no murmur noted Abdomen: bowel sounds present but quiet, soft and non-tender to palpation, obese Extremities: no edema, moving all extremities equally neuro: A and O x 3; adjusting to her new diagnosis, no confusion, no focal deficits Psych: very stoic and [id number] about her diagnosis. Adjusting for now. Concerned about others more than herself. Neck: no LAD. Eyes: anicteric non injected Results Last Vital Signs Temp 97.7 F 05/04/21 07:21 Pulse 84 05/04/21 07:21 Resp 17 05/04/21 07:21 BP 100/66 05/04/21 07:21 Pulse Ox 93 05/04/21 07:21 Labs Result diagrams: 05/03/21 06:20 05/02/21 06:05 Labs: Laboratory Results - last 24 hr 05/03/21 05/03/21 06:20 06:20 Iron 19 L TIBC 183 L Transferrin % Sat 10 L Carcinoembryonic Ag <2.0
--- NOTE | 2021-05-04 15:58 | W.PM.PROGNOT ---
Date of Service Date of service: 05/04/21 Time of Service: 15:59 Assessment and Plan Assessment and plan (1) Melanoma: Status: Acute Assessment and plan: confirmed by [facility] pathology 05/04/21 Objective Last Vital Signs Temp 36.5 C 05/04/21 07:21 Pulse 84 05/04/21 07:21 Resp 17 05/04/21 07:21 BP 100/66 05/04/21 07:21 Pulse Ox 93 05/04/21 07:21 Laboratory Results - last 24 hr 05/03/21 05/03/21 06:20 06:20 Iron 19 L TIBC 183 L Transferrin % Sat 10 L Carcinoembryonic Ag <2.0
--- NOTE | 2021-05-04 16:59 | CHAPLAIN ---
Jerica was sitting at the edge of her bed when I visited. She told me that she has cancer from here to here, pointing from her chest down to her waist. She said this is a new diagnosis and she's had a few days to think about. Jerica said she knows there's a stairway to [facility] and she's going there. She lives with her significant other. They've been together 15 years. Earlier she was involved with the [facility] but left when she was because the restorationist didn't welcome people at the time, Jerica said. Her daughter is her agent for health care. Jerica will be going home with hospice. I let he know that she'll have access to Rev. Edna Dooley, the hospice team lead and she would likely enjoy visits with her.
--- NOTE | 2021-05-04 17:41 | PDOC.CMPRO ---
Care Management Progress Note S/O: Iris was lying in bed, sleeping. COLST completed with Dr. Stephenson this morning. Iris will return home on Hospice, likely tomorrow. CM continues to follow. A: 71 year old female admitted to [facility] 05/01/21 for anemia, hypotension P: Iris will discharge home with Hospice support through [facility]. She will transport via private vehicle with family. CM continues to follow.
[2021-05-04] MEDS: buPROPion-CR 150 MG TABCR PO (20:18)
[2021-05-04] MEDS: Albuterol 2.5 MG/3 ML INH SOLN VIAL UPD (20:20)
[2021-05-04] MEDS: rOPINIRole 1 MG TAB 2 MG PO (21:21)
[2021-05-05] MEDS: Escitalopram 20 MG TAB 40 MG PO (09:00)
[2021-05-05] MEDS: Polyethylene Glycol 3350 17 GM PACKET PO (09:00)
[2021-05-05] MEDS: Docusate Sodium 100 MG CAP PO (09:00)
[2021-05-05] MEDS: Benzonatate 200 MG CAP PO (09:00)
[2021-05-05] MEDS: buPROPion-CR 150 MG TABCR 300 MG PO (09:00)
[2021-05-05] MEDS: Mometasone 220 MCG 14 DOSE INHALER IH (09:12)
--- NOTE | 2021-05-05 09:54 | CMDISCH_ITS ---
LACE Index Scoring Tool - Questions: Length of Stay (in days): 4 - 6 Acuity (Admit via E.D.?): Yes Comorbidities: Diabetes w/o Complication, Metastatic Solid Tumor E.D. Visits: 1 - Answers: Total Score: 13 Risk of Readmission: High Risk Care Management Discharge Reason for Hospitalization: Anemia, Hypotension Discharge Plan: Jerica will discharge home with Hospice support through [facility]. She will transport via private vehicle with family. Patient/Family Education Needs: Review discharge instructions, discuss Ask Me Three. Services Needed at Discharge: Home Health Care Services ([facility] )
--- NOTE | 2021-05-05 11:20 | PGE_ITS ---
Date of Service Date of service: 05/05/21 Time of Service: 09:20 Assessment and Plan Assessment and plan (1) Partial obstruction of colon: Status: Chronic Assessment and plan: Postoperative day #2 status post colonoscopy for obstructing sigmoid mass -Pathology pending at this time -Patient has been tolerating regular diet without issues and states bowels have been moving bowels for -No further episodes of melena -Patient be going home today with hospice care but overall remains in good spirits -Continue supportive care, we will sign off please call with questions or conc erns. Subjective Subjective Patient reports: no new complaints, tolerating a regular diet and voiding w/o difficulty Exam Const General: cooperative, comfortable and no acute distress Resp Effort & Inspection: normal respiratory effort, able to speak in complete sentences and no audible wheezes Cardio Rate: regular rate Rhythm: regular rhythm GI Inspection: normal to inspection Palpation: not firm, no guarding and nontender Percussion: normal to percussion Objective Last Vital Signs Temp 97.7 F 05/04/21 07:21 Pulse 84 05/04/21 07:21 Resp 17 05/04/21 07:21 BP 100/66 05/04/21 07:21 Pulse Ox 93 05/04/21 07:21
--- NOTE | 2021-05-05 14:27 | CHAPLAIN ---
I visited with Jerica shortly before she was discharged. Her daughter, sister, and Dr. Stephenson were with her. Jerica is going home on Hospice. She has a very new diagnosis of cancer, which appears to be through out her body. She has remained stoic. She is one of 8 kid, and four of her siblings have , so Jerica delayed telling her 92 year old mom about the diagnosis. Jerica's daughter will be staying with her and Jerica also lives with her significant other, Rojas.
--- NOTE | 2021-05-05 19:50 | PCPN_ITS ---
Date of service: 05/05/21 Time of Service: 09:51 Assessment and Plan Assessment and plan (1) Encounter for hospice care discussion: Status: Acute Assessment and plan: Jerica will be admitted to [facility] when she returns home. Her daughter Samia is staying with her indefinitely. Apparently, Jerica's SO, Rojas is really struggling with her diagnosis and is anxious and agitated, to the point where he cannot care for her himself. (2) Hospice care patient: Status: Acute (3) Melanoma: Status: Acute Assessment and plan: Initially diagnosed in 2018 and [place] [facility] [place] No radiation. No chemo. Family is interested in having her mother's biopsy sample studied for inheritable genetic mutations. Samia has the number for this program. (4) Partial obstruction of colon: Status: Chronic Assessment and plan: Jerica has lost 40-50 lbs int he last 3-4 months. She has no appetite. She is having liquid stool, but not much of it. Remains at risk for complete obstruction with bowel rupture. (5) Hx of malignant melanoma of skin: Status: Chronic Subjective Subjective Patient reports: no new complaints, feels better and tolerating liquids well; denies vomiting Interval history since last seen: I met Jerica Gracia's oldest child and Jerica Fuller's remaining sister this morning. Samia reported that the hospice DME was being delivered today. We printed out and discussed the CT scan report showing her mother's widespread metastases. We reviewed Dr Domingo's note of the pathology report: Jerica does have melanoma. I called Dr Monteiro at [facility] to ask about how Samia could facilitate having her mother's biopsy analyzed for genetic mutations. He suggested the Familial Cancer Program at [facility] [place] He also suggested that Jerica and/or her family may want to consult Dr Zamudio about the possibility of treating her melanoma. I then listed out the nature of her widespread metastases and he demurred. Jerica has a nearly completely occluding mass in her signoid colon; given the size and placement of her lung metastases, she would not be a surgical candidate. Dr Domingo relayed that Jerica's risk of dying from a bowel obstruction is probably higher than dying from her melanoma. We reviewed the signs and symptoms of a bowel obstruction, with Samia, Alina and Jerica. We developed a plan that IF Jerica is not producing any stool, her abdomen becomes distended and firm, or if she starts vomiting, they are to contact the hospice nurse GIGI. It is likely that Jerica will need to come into the hospital for aggressive pain control if this happens. If this doesn't happen, she has some resilience physically, and may survive for weeks to months still. Exam Narrative Exam Narrative: General: pleasant, in no distress or discomfort, joking with her daughter, sister and nurse Skin: red-head, fair, multiple freckles, sun-damage, but no lesions visible c/w new melanoma lesion Lungs: clear, distant, no increased WOB Heart: RRR, no murmur noted Abdomen: bowel sounds present but quiet, soft and non-tender to palpation, obese Extremities: no edema, moving all extremities equally neuro: A and O x 3; adjusting to her new diagnosis, no confusion, no focal deficits Psych: very stoic and [id number] about her diagnosis. Adjusting for now. Concerned about others more than herself. Neck: no LAD. Eyes: anicteric non injected Objective Last Vital Signs Temp 97.7 F 05/04/21 07:21 Pulse 84 05/04/21 07:21 Resp 17 05/04/21 07:21 BP 100/66 05/04/21 07:21 Pulse Ox 93 05/04/21 07:21
== END 2021-05-05 11:22 | disposition home health service (06) | DRG 375 ==
LOC: ER 10:36 → ICU 11:43 → MS 05-03 12:05
PROVIDERS: Surgery; Admitting Provider Internal Medicine; Emergency Provider Student in an Organized Health Care Education/Training Program; PCP Family Medicine; Visit Provider Internal Medicine
PROC: 0DJD8ZZ Inspection of Lower Intestinal Tract, Via Natural or Artificial Opening Endoscopic (ICD-10-PCS; CPT 45378; principal; 2021-05-03 12:15)
DX: C78.5 Secondary malignant neoplasm of large intestine and rectum (principal); C78.02 Secondary malignant neoplasm of left lung; D62 Acute posthemorrhagic anemia; K62.5 Hemorrhage of anus and rectum; C78.01 Secondary malignant neoplasm of right lung; C77.2 Secondary and unspecified malignant neoplasm of intra-abdominal lymph nodes; C77.5 Secondary and unspecified malignant neoplasm of intrapelvic lymph nodes; C78.7 Secondary malignant neoplasm of liver and intrahepatic bile duct; K56.690 Other partial intestinal obstruction; F32.9 Major depressive disorder, single episode, unspecified; J45.909 Unspecified asthma, uncomplicated; E11.42 Type 2 diabetes mellitus with diabetic polyneuropathy; G47.33 Obstructive sleep apnea (adult) (pediatric); Z86.010 Personal history of colon polyps; I10 Essential (primary) hypertension; E78.5 Hyperlipidemia, unspecified; E66.9 Obesity, unspecified; Z68.35 Body mass index [BMI] 35.0-35.9, adult; L40.9 Psoriasis, unspecified; Z87.891 Personal history of nicotine dependence; Z80.0 Family history of malignant neoplasm of digestive organs; K57.30 Diverticulosis of large intestine without perforation or abscess without bleeding; I95.89 Other hypotension; Z20.822 Contact with and (suspected) exposure to COVID-19; G25.81 Restless legs syndrome; Z85.820 Personal history of malignant melanoma of skin
CPT/HCPCS: 45331; 36415; 36430; 71275; 74177; 80053; 84145; 86850; 86900; 86901; 86920; 87040; 87635; 88305; 93005; 94640; 96361; 96365; 96367; 99222; 99231; 99232; 99291; 70470; 71045; 81003; 81015; 82378; 83540; 83550; 83605; 83615; 83735; 83880; 84439; 84443; 84484; 85014; 85018; 85025; 85379; 85610; 88361; 93010; 93306; 94010; 99223; 99233; J1756; J2001; J3475; J3490; J7512; J7613; J7620; P9016; Q9967